=== PATIENT | female | born 1940 | race Caucasian/White ===

== ENCOUNTER 2017-02-17 16:24 | Inpatient (IN) | payer OTHER, MEDICARE ==
[~2017-02-17] VITALS: Ht 162.6 cm; Wt 52.2 kg
[~2017-02-17 16:24] MED LIST: BENTYL20 M1 PO; Dulcolax PO; FOLIC ACID 1 MG PO; METHOTREXATE 22.5 MG PO; MULTI-DAY VITA1 EACH PO; SYNTHROID0.075 MG PO; Senokot S PO; TUMS EX750 MG PO; VITAMIN D1000 IU PO
--- NOTE | 2017-02-17 16:33 | NUR ---
PT TO ED FOR C/C OF DIFFUSE ABD PAIN AND VOMITING WITHOUT BLOOD. UNABLE TO KEEP FOOD AND WATER DOWN. HX OF COLITIS REPORTS PAIN IS SIMILAR IN NATURE TO PREVIOUS ATTACKS. REPORTS CHILLS, NO FEVERS. +BURNING WITH URINATION. DENIES DIARRHEA.
--- NOTE | 2017-02-17 17:07 | ED GI/GU/ABDOMINAL COMPLAINT ---
History of Present Illness General Chief Complaint: Nausea, Vomiting, Diarrhea Stated Complaint: VOMITING H/O COLITIS,BURNING W URINATION Source: patient, old records Exam Limitations: no limitations Vital Signs & Intake/Output Vital Signs & Intake/Output Vital Signs Date Time Temp Pulse Resp B/P B/P Pulse O2 O2 Flow FiO2 Mean Ox Delivery Rate 02/19 1446 98.2 67 18 100/70 97 Room Air 02/19 0851 98.2 80 16 112/48 98 Room Air ED Intake and Output 02/19 0000 02/18 1200 Intake Total 2480 840 Output Total 200 Balance 2480 640 Intake, IV 1200 600 Intake, Oral 1280 240 Number 0 1 Bowel Movements Output, Urine 200 Patient 115 lb Weight Allergies Coded Allergies: NSAIDS (Non-Steroidal Anti-Inflamma (Severe, ANAPHYLAXIS 02/17/17) Sulfa (Sulfonamide Antibiotics) (Severe, ANAPHYLAXIS 02/17/17) naproxen (From ALEVE) (Severe, ANAPHYLAXIS 02/17/17) Penicillins (Intermediate, HIVES, COLITIS ATTACK 02/17/17) Reconcile Medications Calcium Carbonate (Tums Ex) 750 MG CTB 2 TAB PO 3XW SUPPLEMENT (Reported) Cholecalciferol (Vitamin D3) (Vitamin D) 2,000 UNIT TABLET 1 TAB PO DAILY Supplement (Reported) Dicyclomine HCl (Bentyl) 20 MG TABLET 1 TAB PO TID PRN CRAMPS Folic Acid 1 MG TABLET 1 MG PO DAILY FOLIC ACID SUPPLEMENT (Reported) Levothyroxine Sodium (Synthroid) 0.075 MG TAB 0.075 MG PO DAILY AC THYROID ( Reported) Methotrexate 2.5 MG TABLET 4 TAB PO QW Rheumatoid arthritis (Reported) Take every monday Multivitamin (Multi-Day Vitamins) 1 EACH TABLET 1 TAB PO DAILY SUPPLEMENT ( Reported) Triage Note: PT TO ED FOR C/C OF DIFFUSE ABD PAIN AND VOMITING WITHOUT BLOOD. UNABLE TO KEEP FOOD AND WATER DOWN. HX OF COLITIS REPORTS PAIN IS SIMILAR IN NATURE TO PREVIOUS ATTACKS. REPORTS CHILLS, NO FEVERS. +BURNING WITH URINATION. DENIES DIARRHEA. Triage Nurses Notes Reviewed? yes ? N Is pt currently ? No Onset: Gradual Duration: day(s): Timing: recent history Quality/Severity: aching, dullness, stabbing Severity Numbers: 9 Location: left lower quadrant, right lower quadrant, BACK HPI: 76-year-old female presents emergency department complaining of lower abdominal and back pain since yesterday. She states that she has a history of colitis, OLD records show she was seen for colitis on 05/05/16. The patient states that her pain currently feels similar to previous episodes of colitis. She is also complaining of nausea with nonbloody, nonbilious vomiting beginning around 1 PM today. Abdominal pain is described as dull aching with occasional sharp stabs. Her back pain is described as more severe,9/10, worse on the left side. Is also complaining of dysuria since this morning. She says she gets frequent UTIs, last occurring in November of this year. She was recently treated with a course of oral steroids X 2.5 weeks and believes that this may have affected her intestines. She denies fevers, chills, hematuria, frequency, diarrhea, constipation, chest pain, difficulty breathing. (SHEFALI SAWYER PA-C) Past History Travel History Traveled to [place] past 21 day No Medical History Any Pertinent Medical History? see below for history Neurological: NONE EENT: NONE Cardiovascular: NONE Respiratory: NONE Gastrointestinal: hiatal hernia, infectious colitis Hepatic: NONE Renal: nephrolithiasis, RECURRENT UTIs Musculoskeletal: osteoarthritis, rheumatoid arthritis Psychiatric: NONE Endocrine: hypothyroidism Blood Disorders: NONE Cancer(s): NONE NETWORK ENGINEER/Reproductive: NONE Surgical History Surgical History: appendectomy, cholecystectomy, hysterectomy, tonsillectomy Psychosocial History Who do you live with Spouse Services at Home NONE What is your primary language Lithuanian Tobacco Use: Never used ETOH Use: denies use Illicit Drug Use: denies illicit drug use Family History Family History, If Any: BROTHER (SD at age of 50). SISTER (nephrolithiasis). Hx Contributory? No (SHEFALI SAWYER PA-C) Review of Systems Review of Systems Constitutional: Reports: no symptoms. EENTM: Reports: no symptoms. Respiratory: Reports: no symptoms. Cardiovascular: Reports: no symptoms. GI: Reports: see HPI. Genitourinary: Reports: see HPI. Musculoskeletal: Reports: see HPI. Skin: Reports: no symptoms. Neurological/Psychological: Reports: no symptoms. Hematologic/Endocrine: Reports: no symptoms. Immunologic/Allergic: Reports: no symptoms. All Other Systems: Reviewed and Negative (SHEFALI SAWYER PA-C) Physical Exam Physical Exam General Appearance: well developed/nourished, no apparent distress, alert, awake Head: atraumatic, normal appearance Eyes: Bilateral: normal appearance, EOMI. Ears, Nose, Throat, Mouth: hearing grossly normal Neck: normal inspection, supple, full range of motion Respiratory: normal breath sounds, no respiratory distress, lungs clear Cardiovascular: regular rate/rhythm Gastrointestinal: normal bowel sounds, soft, no organomegaly, TENDERNESS THROUGHOUT EXAM, NO REBOUND, NO GAURDING Back: normal inspection, CVA tenderness (L) Extremities: normal range of motion Neurologic/Psych: awake, alert, oriented x 3 Skin: intact, normal color Core Measures ACS in differential dx? No Severe Sepsis Present: No Septic Shock Present: No (DIGNA GARCIA,SHEFALI) Progress Differential Diagnosis: appendicitis, bowel obstruction, cholecystitis, diverticulitis, gastritis, ischemic bowel, kidney stone, ovarian cyst, pancreatitis, peptic ulcer, SBO, UTI/pyelo Plan of Care: Orders Procedure Date/time Status Regular Diet 02/19 L Active Current Medications Sig/Ofelia Start time Last Medication Dose Stop Time Status Admin Enoxaparin Sodium 40 MG DAILY@2200 02/18 2200 AC 02/18 (Lovenox) 2114 Estradiol 1 GM Q48 02/18 1400 AC 02/18 (Estrace Vaginal Cm 1647 0.01%) Calcium Carbonate 750 MG TUES THURS SAT 02/18 1000 AC 02/18 (TUMS) 0938 Ceftriaxone Sodium 1,000 MG DAILY 02/18 1000 AC 02/19 (Rocephin) 0959 Cholecalciferol 2,000 IU DAILY 02/18 1000 AC 02/19 (Vitamin D) 0959 Folic Acid 1 MG DAILY 02/18 1000 AC 02/19 (Folic Acid) 0959 Methotrexate 10 MG Q168 02/18 1000 AC 02/18 (Methotrexate 2.5MG 0939 Tab) Multivitamins 1 TAB DAILY 02/18 1000 AC 02/19 Therapeutic 0959 (Theragran-M Vitamins Tabs) Levothyroxine Sodium 0.075 MG DAILY AC 02/18 0700 AC 02/19 (Synthroid) 0548 Dicyclomine HCl 20 MG 4 TIMES/DAY PRN 02/18 0130 AC (Bentyl) Ondansetron HCl 4 MG Q6P PRN 02/17 2345 AC 02/17 (Zofran) 2356 Acetaminophen 650 MG Q6P PRN 02/17 2130 AC 02/18 (Tylenol) 0018 Laboratory Tests 02/19/17 0600: CBC w Diff NO MAN DIFF REQ, RBC 4.48, MCV 87.2, MCH 28.8, RDW 15.2 H, MPV 8.3, Gran % 56.1, Lymphocytes % 33.9, Monocytes % 6.6, Eosinophils % 3.0, Basophils % 0.4, Absolute Granulocytes 3.4, Absolute Lymphocytes 2.1, Absolute Monocytes 0.4 , Absolute Eosinophils 0.2, Absolute Basophils 0, PUBS MCHC 33.0 Patient states that she feels improved and nausea since IV Zofran. She is very thirsty requesting by mouth water/em balbir. The patient was discussed with Dr. Ospina. Her CT scan shows resolved colitis from prior scan, renal calculi present in left kidney however no pyelonephritis no hydronephrosis no stone in ureter. UA reveals UTI. 20:45 - spoke with Dr. Mckinnon, patient will be admitted to general medicine given UTI with significant leukocytosis. Patient may require IV antibiotics, she will need repeat labs and blood work, continued monitoring given her age and leukocytosis. Premature discharge would be medically unsafe. Patient is in agreement with the plan of care. (DIGNA GARCIA,SHEFALI) Diagnostic Imaging: Viewed by Me: CT Scan. Discussed w/RAD: CT Scan. Radiology Impression: PATIENT: NITIN HAMPTON PRESENT AGE: 76 PATIENT ACCOUNT NO: [id number] : 41 LOCATION: [facility] ORDERING PHYSICIAN: SHEFALI SAWYER PA-C SERVICE DATE: 02/17/17 EXAM TYPE: CAT - CT ABD & PELVIS W IV CONTRAST EXAMINATION: CT ABDOMEN AND PELVIS WITH CONTRAST CLINICAL INFORMATION: Abdomen pain. Back pain. Nausea. Vomiting COMPARISON: Portions of a previous study 05/05/16 TECHNIQUE: Multidetector volumetric imaging was performed of the abdomen and pelvis before and after the IV administration of 93 mL of Optiray 320 intravenous contrast. Sagittal and coronal reformatted images were obtained on the technologist's workstation. DLP: 269 mGy-cm FINDINGS: LUNG BASES: There is a small to moderate sliding-type hiatal hernia. No suspicious abnormality the visualized lung bases. LIVER, GALLBLADDER, AND BILIARY TREE: No suspicious abnormality in the liver. I suspect some fatty change. The liver contour is smooth. There are surgical clips in the expected region of the gallbladder. The common duct measures approximately 0.7 cm which is within normal limits after cholecystectomy and appears unchanged. PANCREAS: No suspicious abnormality. SPLEEN: There is an unchanged round low attenuating lesion at the posterior margin of the spleen likely a cyst. ADRENAL GLANDS: Within normal limits KIDNEYS AND URETERS: There are multiple fluid attenuating spaces in the central sinus of both kidneys again demonstrated. The pattern is felt most consistent with parapelvic cysts. There is mild fullness of the renal pelvis on each side and there is visualization of urine within a minimally prominent left ureter. There are multiple punctate left renal calculi. These all measure less than 0.4 cm. There is no opaque ureteral calculus. BLADDER: No suspicious abnormality. GASTROINTESTINAL TRACT: There is some fluid and a large amount of fecal residue. The fecal residue is in the distal colon. The fluid is in the proximal colon. There is no definite wall thickening. No localized pericolonic fat stranding. No abnormal appendix demonstrated. No definite abnormality the stomach. No convincing small bowel dilation. ABDOMINAL WALL: No significant hernia is appreciated. LYMPH NODES: There are no enlarged abdominal or pelvic lymph nodes. No free intraperitoneal fluid. VASCULAR: There is atherosclerotic calcification. There is no abdominal aortic aneurysm. The portal vein enhances. PELVIC VISCERA: The uterus is surgically absent. No suspicious adnexal mass or collection. OSSEOUS STRUCTURES: No suspicious focal lesion IMPRESSION: There is resolution of the previously demonstrated thickening of the distal colon. Large amount of fecal residue in the distal colon. No evidence of a high-grade small bowel obstruction. Numerous renal parapelvic cysts and some punctate nonobstructing small left renal calculi. DICTATED BY: JOSEPH GAN MD DATE/TIME DICTATED:02/17/171826 CAREER REPRESENTATIVE:TAYE DATE/TIME TRANSCRIBED:02/17/171826 CONFIDENTIAL, DO NOT COPY WITHOUT APPROPRIATE AUTHORIZATION. <Electronically signed in Other Vendor System> SIGNED BY: JOSEPH GAN MD 02/17/17 1841 Initial ED EKG: none (SHEFALI SAWYER PA-C) Departure Departure Disposition: STILL A PATIENT Condition: Stable Clinical Impression Primary Impression: Cystitis Secondary Impressions: Leukocytosis Referrals: RHETT EATON,ROBERT Michele (PCP/Family) Departure Forms: Customer Survey General Discharge Information Admission Note Spoke With: ASTER MCKINNON MD Documentation of Exam: Documentation of any treatments & extenuating circumstances including Concerns Regarding Discharge (functional status, medication knowledge or non-compliance, living conditions, etc.) that warrant an admission rather than observation: [ leukocytosis with cystitis, requiring possible IV antibiotics, further IV fluids , repeat labs to monitor WBCs, monitoring of vital signs, premature discharge would be medically unsafe] (SHEFALI SAWYER PA-C) PA/PRODUCT DELIVERY SPECIALIST Co-Sign Statement Statement: ED Attending supervision documentation- [X] I saw and evaluated the patient. I have also reviewed all the pertinent lab results and diagnostic results. I agree with the findings and the plan of care as documented in the PA's/PRODUCT DELIVERY SPECIALIST's documentation. [X] I have reviewed the ED Record and agree with the PA's/PRODUCT DELIVERY SPECIALIST's documentation. [] Additions or exceptions (if any) to the PAs/PRODUCT DELIVERY SPECIALIST's note and plan are summarized below: [] (SETH EATON,COREY)
--- NOTE | 2017-02-17 17:21 | NUR ---
PT REPORTS THIS ALL STARTED WITH A FALL WEEKS AGO. PT STARTED ON MEDS THIS AM FOR HER URINE AND THEN BEGAN VOMITING AT 2 PM, HAS HAD THIS MED BEFORE BUT THINKS IT IS A CUMULATION OF EVERYTHING SINCE THE FALL. IVF ESTABLISHED PT CHANGED INTO GOWN. MED WITH ZOFRAN 4 MG IV
[2017-02-17 17:35] LABS: ABSOLUTE BASOPHIL COUNT 0.1 /CUMM (0.0-0.2); ABSOLUTE EOSINOPHIL COUNT 0 /CUMM (0.0-0.7); ABSOLUTE GRANULOCYTE CT 17.8 /CUMM (1.4-6.5); ABSOLUTE LYMPH COUNT 1.2 /CUMM (1.2-3.4); ABSOLUTE MONOCYTE COUNT 0.7 /CUMM (0.10-0.60); BASOPHIL % 0.3 % (0.0-2.0); EOSINOPHIL % 0.2 % (0-5); GRANULOCYTE % 90.1 % (42.2-75.2); HEMATOCRIT 47.7 % (37-47); MEAN CORPUSCULAR HGB 28.5 PG (27.0-31.0); MEAN CORPUSCULAR VOLUME 86.2 FL (81.0-99.0); PLATELET COUNT 278 /CUMM (130-400); RBC DISTRIBUTION WIDTH 15.4 % (11.5-14.5); RED BLOOD CELL CT 5.53 /CUMM (4.20-5.40); WHITE BLOOD CELL COUNT 19.8 /CUMM (4.8-10.8)
--- NOTE | 2017-02-17 18:41 | CT SCAN REPORT ---
EXAMINATION: CT ABDOMEN AND PELVIS WITH CONTRAST CLINICAL INFORMATION: Abdomen pain. Back pain. Nausea. Vomiting COMPARISON: Portions of a previous study 05/05/16 TECHNIQUE: Multidetector volumetric imaging was performed of the abdomen and pelvis before and after the IV administration of 93 mL of Optiray 320 intravenous contrast. Sagittal and coronal reformatted images were obtained on the technologist's workstation. DLP: 269 mGy-cm FINDINGS: LUNG BASES: There is a small to moderate sliding-type hiatal hernia. No suspicious abnormality the visualized lung bases. LIVER, GALLBLADDER, AND BILIARY TREE: No suspicious abnormality in the liver. I suspect some fatty change. The liver contour is smooth. There are surgical clips in the expected region of the gallbladder. The common duct measures approximately 0.7 cm which is within normal limits after cholecystectomy and appears unchanged. PANCREAS: No suspicious abnormality. SPLEEN: There is an unchanged round low attenuating lesion at the posterior margin of the spleen likely a cyst. ADRENAL GLANDS: Within normal limits KIDNEYS AND URETERS: There are multiple fluid attenuating spaces in the central sinus of both kidneys again demonstrated. The pattern is felt most consistent with parapelvic cysts. There is mild fullness of the renal pelvis on each side and there is visualization of urine within a minimally prominent left ureter. There are multiple punctate left renal calculi. These all measure less than 0.4 cm. There is no opaque ureteral calculus. BLADDER: No suspicious abnormality. GASTROINTESTINAL TRACT: There is some fluid and a large amount of fecal residue. The fecal residue is in the distal colon. The fluid is in the proximal colon. There is no definite wall thickening. No localized pericolonic fat stranding. No abnormal appendix demonstrated. No definite abnormality the stomach. No convincing small bowel dilation. ABDOMINAL WALL: No significant hernia is appreciated. LYMPH NODES: There are no enlarged abdominal or pelvic lymph nodes. No free intraperitoneal fluid. VASCULAR: There is atherosclerotic calcification. There is no abdominal aortic aneurysm. The portal vein enhances. PELVIC VISCERA: The uterus is surgically absent. No suspicious adnexal mass or collection. OSSEOUS STRUCTURES: No suspicious focal lesion IMPRESSION: There is resolution of the previously demonstrated thickening of the distal colon. Large amount of fecal residue in the distal colon. No evidence of a high-grade small bowel obstruction. Numerous renal parapelvic cysts and some punctate nonobstructing small left renal calculi.
--- NOTE | 2017-02-17 18:52 | NUR ---
URINE TRIO SENT TO LAB.
--- NOTE | 2017-02-17 19:30 | NUR ---
ASSUMED CARE OF PT PER RN YUDY H. PT RESTING IN RM ON STRETCHER WITH RR, FAMILY AT BEDSIDE. ESCOBAR GARCIA IN RM FOR POC AND TP DISCUSS CT RESULTS
--- NOTE | 2017-02-17 20:13 | NUR ---
ESCOBAR GARCIA IN RM FOR POC
--- NOTE | 2017-02-17 20:46 | History & Physical ---
PEGGY EATON,[facility] 02/17/172044: General Information and HPI History of Present Illness: Mr. Jenkins is a 76-year-old female with past medical history of rheumatoid arthritis, hypothyroidism, recurrent colitis, recurrent UTIs, nephrolithiasis, status post cholecystectomy appendectomy and hysterectomy who presents with history of vomiting and abdominal pain. Yesterday she noticed that she had increased frequency of urination and some burning while peeing. She has a prescription for nitrofurantoin that she takes for her recurrent UTIs. She start taking this with no relief. Usually the nitrofurantoin provides relief. This morning when she woke up she was feeling okay. However this afternoon she began vomiting after feeling nauseous. She had copious emesis but no blood. Her pain is located predominantly in the lower half of her abdomen worse on the right lower quadrant. The pain does not radiate. She thinks that this pain is similar to when she has had colitis in the past. She also complaining of some lower back pain. This started after she started vomiting. Of note, 5 weeks ago she mentions that she fell after tripping on the sidewalk. She injured her hands. Ap Batres MD, her small arms repairer, prescribed a prednisone taper. She was supposed to see him in a couple weeks at the end of this taper. She denies chest pain, shortness of breath, fever, diarrhea, constipation. She does have chills occasionally. When she came into the emergency department, her vitals were within normal limits and her pain was 8-9/10. She received ondansetron and 1 L of normal saline and her pain has since subsided to 4/10. She has no diarrhea or constipation. She has remained afebrile, no tachycardia, no hypotension, no hypoxia. Labs are significant for a white blood cell count of 19.8, normal LFTs. UA reveals small leukocyte esterase and 15-[address] of the abdomen/ pelvis shows no evidence of a high-grade small bowel obstruction. It also shows some nonobstructing kidney stones. Allergies/Medications Allergies: Coded Allergies: NSAIDS (Non-Steroidal Anti-Inflamma (Severe, ANAPHYLAXIS 02/17/17) Sulfa (Sulfonamide Antibiotics) (Severe, ANAPHYLAXIS 02/17/17) naproxen (From ALEVE) (Severe, ANAPHYLAXIS 02/17/17) Penicillins (Intermediate, HIVES, COLITIS ATTACK 02/17/17) Past History Travel History Traveled to [place] past 21 day No Medical History Neurological: NONE EENT: NONE Cardiovascular: NONE Respiratory: NONE Gastrointestinal: hiatal hernia, infectious colitis, s/p cholecystectomy Hepatic: NONE Renal: nephrolithiasis, RECURRENT UTIs Musculoskeletal: osteoarthritis, rheumatoid arthritis Psychiatric: NONE Endocrine: hypothyroidism Blood Disorders: NONE Cancer(s): NONE 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 SISTER (nephrolithiasis). Psychosocial History Who Do You Live With? self Services at Home: NONE Primary Language: [place] ETOH Use: denies use Illicit Drug Use: denies illicit drug use Functional Ability ADLs Independent: dressing, eating, toileting, bathing. Ambulation: independent IADLs Independent: shopping, housework, finances, food prep, telephone, transportation , medication admin. Review of Systems Review of Systems Constitutional: Reports: no symptoms. Cardiovascular: Denies: no symptoms. Respiratory: Denies: no symptoms. GI: Reports: see HPI. Genitourinary: Reports: see HPI. Musculoskeletal: Reports: see HPI. Skin: Denies: no symptoms. Exam & Diagnostic Data Last 24 Hrs of Vital Signs/I&O Vital Signs Date Time Temp Pulse Resp B/P B/P Pulse O2 O2 Flow FiO2 Mean Ox Delivery Rate 02/179 99.9 86 18 116/53 96 Room Air 02/17 1850 93 18 142/64 97 Room Air 02/17 1633 96.0 91 15 121/79 94 Room Air Room Air Physical Exam General Appearance Alert, Oriented X3, Cooperative, No Acute Distress Skin No Rashes, No Breakdown, No Significant Lesion Sepsis Skin Exam (color): Normal for Ethnicity HEENT Atraumatic, Mucous Membr. moist/pink, no pallor. Neck Supple, No thryomegaly Lymphatic Cervical nl Cardiovascular Regular Rate, Normal S1, Normal S2, No Murmurs Lungs Clear to Auscultation, Normal Air Movement Abdomen Normal Bowel Sounds, Soft, diffusely tender to palpation. No rebound tenderness no guarding. Tenderness is worse in lower abdomen Neurological Normal Speech, Normal Tone, Cranial Nerves 3-12 NL Extremities No Edema, Normal Pulses Vascular Normal Pulses, Pulses Symmetrical Last 24 Hrs of Labs/Ariel: Laboratory Tests 02/17/17 1845: Urine Color YEL, Urine Clarity CLEAR, Urine pH 6.0, Ur Specific [place] <= 1.005 , Urine Protein NEG, Urine Ketones TRACE H, Urine Nitrite NEG, Urine Bilirubin NEG, Urine Urobilinogen 0.2, Ur Leukocyte Esterase SMALL H, Ur Microscopic SEDIMENT EXAMINED, Urine RBC RARE, Urine WBC 15-25 H, Ur Epithelial Cells FEW, Urine Bacteria FEW H, Urine Hemoglobin TRACE-INTACT, Urine Glucose NEG 02/17/17 1700: Anion Gap 13, Estimated GFR > 60, BUN/Creatinine Ratio 23.8, Glucose 108 H, Calcium 9.8, Total Bilirubin 0.5, AST 25, ALT 38, Alkaline Phosphatase 86, Total Protein 7.4, Albumin 4.5, Globulin 2.9, Albumin/Globulin Ratio 1.6, Amylase 90, Lipase 245, CBC w Diff MAN DIFF ORDERED, RBC 5.53 H, MCV 86.2, MCH 28.5, RDW 15.4 H, MPV 8.0, Gran % 90.1 H, Lymphocytes % 5.9 L, Monocytes % 3.5, Eosinophils % 0.2, Basophils % 0.3, Absolute Granulocytes 17.8 H, Segmented Neutrophils 81 H, Band Neutrophils 7 H, Absolute Lymphocytes 1.2, Lymphocytes 6 L, Monocytes 3, Absolute Monocytes 0.7 H, Eosinophils 1, Absolute Eosinophils 0, Basophils 1, Absolute Basophils 0.1, Metamyelocytes 1, Platelet Estimate ADEQUATE, Anisocytosis 1+, PUBS MCHC 33.0 Microbiology 02/18 2136 URINE ROUT: Urine Culture - ORD 02/18 2136 BLOOD: Blood Culture - ORD 02/18 2136 BLOOD: Blood Culture - ORD Assessment/Plan Assessment: Mr. Jenkins is a 76-year-old female with past medical history of rheumatoid arthritis, hypothyroidism, recurrent colitis, recurrent UTIs, nephrolithiasis, status post cholecystectomy appendectomy and hysterectomy who presents with history of vomiting and abdominal pain. #Positive UA, nausea, vomiting in an immunocompromised host: She is afebrile with a leukocytosis and a UA that is positive. Given her history of UTIs and symptoms, this is likely a UTI. However she also has history of copious vomiting today associated with some lower back pain. While the CT scan did not show any obstructing stones or colitis, these symptoms are not completely consistent with a UTI. Other items on the differential include ischemic colitis , pyelonephritis, cholangitis. Much less likely but critical not to miss includes aortic dissection. She has been and remains hemodynamically stable, but does meet 2 out of 4 SIRS criteria, for leukocytosis (on prednisone) and tachycardia. -Blood culture and urine culture -Stool guaiac -Lactic acid -TSH, free T4, T3 -Percocet for pain -Ondansetron for nausea -Clear liquid diet, advance as tolerated -Maintenance fluids -Ceftriaxone #Chronic medical problems: Hypothyroidism, rheumatoid arthritis, vitamin supplementation -Continue home folic acid, vitamin D, calcium carbonate, Lecothyroxine, methotrexate -Dicyclomine when necessary spasms #DVT prophylaxis with Lovenox full code As Ranked By This Provider Problem List: 1. Leukocytosis Core Measures/Miscellaneous Acute Coronary Syndrome ACS Diagnosis: No Cerebrovascular Accident CVA/TIA Diagnosis: No Congestive Heart Failure CHF Diagnosis: No VTE (View Protocol) VTE Risk Factors: Age > 40 No [facility] VTE prophylaxis d/t: No contraindications No VTE Pharm Prophylaxis d/t: No contraindications VTE Diagnosis: No VTE Type: NONE VTE Confirmed by (Test): NONE Sepsis (View Protocol) Severe Sepsis Present: No Septic Shock Septic Shock Present: No Miscellaneous Documentation Attending Case Discussed With: ASTER GANN MD Primary Care Physician: ROBERT DELANEY MD Patient sees these Specialists Ap Batres MD, small arms repairer. Dr. Parra, GI doctor. Level of Patient Care: General Medicine RUDY DIAZ 02/17/17 1885: General Information and HPI Allergies/Medications Home Med list Calcium Carbonate (Tums Ex) 750 MG CTB 2 TAB PO 3XW SUPPLEMENT (Reported) Cholecalciferol (Vitamin D3) (Vitamin D) 2,000 UNIT TABLET 1 TAB PO DAILY Supplement (Reported) Dicyclomine HCl (Bentyl) 20 MG TABLET 1 TAB PO TID PRN CRAMPS Folic Acid 1 MG TABLET 1 MG PO DAILY FOLIC ACID SUPPLEMENT (Reported) Levothyroxine Sodium (Synthroid) 0.075 MG TAB 0.075 MG PO DAILY AC THYROID ( Reported) Methotrexate 2.5 MG TABLET 4 TAB PO QW Rheumatoid arthritis (Reported) Take every monday Multivitamin (Multi-Day Vitamins) 1 EACH TABLET 1 TAB PO DAILY SUPPLEMENT ( Reported) Resident Review Statement Resident Statement: examined this patient, discussed with fall internship, agreed with fall internship, discussed with family, reviewed EMR data (avail), discussed with nursing , reviewed images Other Findings: Mrs Jenkins is a very pleasant 76-year-old lady with a PMH of RA on methotrexate 10 mg once a week, hypothyroidism, history of colitis last episode in 2016, recurrent UTIs (3 over the past 8 months), who presents with complaints of one- day duration abdominal pain and urinary symptoms. She suffered a fall 5 weeks ago for which she followed up with her small arms repairer Dr. Batres and was started on a prednisone taper at 5 mg BID for 10 days and 5 mg daily (completed 4 days) yesterday morning she experienced new onset stomach pain that she describes as a burning sensation localized around the lower abdomen R>L. This was also accompanied by urinary symptoms that she describes as frequency and burning. She stopped taking the prednisone per recommendations from Dr. Batres and started on standing order of nitrofurantoin for her history of UTIs. This morning she woke up with nausea and had multiple episodes of nonbloody vomitus she denies any sore throat, chest pain, palpitations, shortness of breath, fevers, chills, changes in diet or recent travel. VS admission: BP 121/79, HR 91, RR 15, SPO2 94% on RA, T 96.0 Pertinent labs: WBC 19.8, H&H 15.7/47.7, sodium 141, potassium 3.8, chloride 103 , bicarbonate 25, BUN/CR 19/0.8, glucose 108 UA: Leukocyte esterase positive, 15-[address] abdomen and pelvis: Resolution of previously thickening of distal colon. Large amount of fecal residue in distal colon. Numerous renal parapelvic cysts and some punctate nonobstructing small left renal calculi Physical exam: Alert and in no acute distress, moist mucous membranes, RRR, normal S1/S2. Lungs CTA BL. Normal bowel sounds with tenderness to palpation over the epigastric, suprapubic, right and left lower quadrants. Problem list: 1. UTI 2. SIRS criteria: Leukocytosis 19.8, HR 91 3. Gastritis 4. Renal calculi 5. Probable constipation 6. Hypothyroidism Plan: * Admit to general medicine for management of UTI with SIRS criteria * Patient has an allergy to penicillins with hives. Pt has received cefazolin in the past. Would be inclined to start her on ceftriaxone based on 5% cross reaction between PCN and cephalosprins, standing order of Benadryl in case of hives. Follow-up urine cultures and adjust for sensitivities accordingly * Follow up blood culture for possibility of bacteremia. Of note, patient reports normally not running fevers when sick * DDX gastritis: We'll start the patient on clear liquids and advance as tolerated, antiemetics with Zofran PRN, PPI * DDX of renal calculi irritation: Less likely at this time. No evidence of hematuria but is not always necessary. We'll continue to manage and if persistent symptoms consider starting on Flomax * Bowel regimen with senna and Colace * Continue with levothyroxine. Follow TFTs * DVT prophylaxis: Lovenox * Full code
--- NOTE | 2017-02-17 21:21 | NUR ---
HOUSE STAFF IN FOR EVAL
--- NOTE | 2017-02-17 21:38 | NUR ---
PT IS GOING TO 229-2
--- NOTE | 2017-02-17 22:16 | NUR ---
THIS RN MADE MULTIPLE ATTEMPTS TO CALL REPORT, NO ANSWER ON [facility].
--- NOTE | 2017-02-17 22:22 | NUR ---
REPORT GIVEN TO JARED WAGNER ON [facility].
--- NOTE | 2017-02-17 22:26 | NUR ---
TRANSPORT REQUEST SENT
--- NOTE | 2017-02-17 22:36 | NUR ---
THIS RN CALLED [facility] ON THE PHONE FOR TRANPORT AND [facility] STATES THAT THIS RN PLACED THE CORRECT TRANSPORT ORDER. [facility] STATED "IM WAITING FOR THE BOYS TO GET BACK FROM A TRANSPORT"
[2017-02-17 23:50] VITALS: BP 104/50
--- NOTE | 2017-02-18 01:05 | PN- Att Addend ---
Attending Addendum Attending Brief Note CC: Abdominal pain, vomiting PMH: Rheumatoid arthritis, hypothyroidism, recurrent UTI, nephrolithiasis ( history of cholecystectomy, hysterectomy, appendicectomy) Patient came to ER complaining of lower abdominal pain more so in the right lower quadrant, nonradiating, non-shifting, associated with multiple vomitings clear and bilious, no blood, no fever endorses some chills. Patient had been getting urinary burning since yesterday, started on nitrofurantoin on her own. Denies diarrhea, blood in stool. Patient compares his pain to similar episode in the past for colitis. Vitals: Tmax 99.9, HR 90, RR 15, blood pressure 121/79, saturating well on room air. On exam: A O 3, cooperative, no acute distress, neck supple, JVD normal, no lymphadenopathy, mucosa moist, no focal neurological deficit, no dependent edema , no obvious skin rashes or inflammation CVS: S1-S2, RRR. RS: Clear to auscultate bilaterally. Abdomen: Soft, mild tender, more so in the right lower quadrant ? Rebound bowel sounds present, left CVA tenderness present. Peripheral pulses perfusion normal Labs: WBC 19.8 neutrophils 90%, bands 7, hemoglobin 15.7, BMP, LFT unremarkable, , lipase 245 UA positive for trace ketone, small leukocyte esterase CT abdomen and pelvis: 1. There is resolution of the previously demonstrated thickening of the distal colon. Large amount of fecal residue in the distal colon. 2. No evidence of a high-grade small bowel obstruction. 3. Numerous renal parapelvic cysts and some punctate nonobstructing small left renal calculi. A and P 76-year-old female with past medical history significant for rheumatoid arthritis, hypothyroidism currently on Synthroid and methotrexate and tapering dose of prednisone for recent suspected flare of rheumatoid arthritis and recurrent urinary tract infection presents ER for right lower quadrant abdominal pain and recurrent vomitings. She also has urinary burning, left CVA tenderness. Patient states that she gets it recurrent UTI approximately 3-4 times in ER, takes nitrofurantoin time when she starts symptoms. This time even though she started nitrofurantoin time the nausea and abdominal pain was persistent which was compatible to a previous episode of colitis so she came to ER. Patient has leukocytosis with 7 bands, UA positive for leukocyte esterase only no nitrites. CVA tenderness present as mentioned above, CT does not mention any evidence of pyelonephritis but clinically appears so. Also mild tenderness right lower quadrant which will need serial examinations, she has history of appendectomy, cholecystectomy which will rule out other pathologies, CT abdomen is unremarkable. She will benefit from IV antibiotics given her immunocompromised status + Suspected left-sided pyelonephritis + Right lower quadrant abdominal pain + Nausea vomiting + History of rheumatoid arthritis, hypothyroidism - Admit to general medicine - Continue gentle hydration - Advance diet as tolerated - When necessary Zofran for nausea - Urine culture, blood culture - Trend lactate - Continue IV ceftriaxone - Continue all her home medications - Bowel regimen - Check troponin and EKG - Serial abdominal examination for tenderness - Adequate pain control - DVT prophylaxis with Lovenox
--- NOTE | 2017-02-18 01:06 | Admission Certification ---
Admission Certification Certification Statement - As attending physician, I certify that at the time of - admission, based on clinical presentation, severity of - symptoms, need for further diagnostic testing and - therapeutic interventions, and risk of adverse outcomes - without in-hospital treatment, in my clinical assessment, - this patient requires an acute hospital stay for a minimum - of two nights or longer. I have also considered psychsocial - factors such as support system, advanced age, financial - issues, cognitive issues, and failed out-patient treatments, - past re-admission history, safety of patient, and lack of - compliance as applicable. Specific rationale supporting this admission is: UTI and suspected left-sided pyelonephritis
[2017-02-18] MEDS ORDERED: VITAMIN D2000 UNI1 PO (01:30)
[2017-02-18] MEDS ORDERED: METHOTREXATE2.5 M2 PO (01:32)
--- NOTE | 2017-02-18 04:29 | PN- Housestaff ---
See Addendum Subjective Follow-up For: UTI Subjective: Her pain is improved from last night though she still feels pressure and some nausea. Her back pain is not bothering her right now. No vomitting last night. She still has dysuria Review of Systems Constitutional: Denies: no symptoms. Cardiovascular: Denies: no symptoms. Respiratory: Denies: no symptoms. Gastrointestinal: Reports: see HPI. Genitourinary: Reports: see HPI. Objective Last 24 Hrs of Vital Signs/I&O Vital Signs Date Time Temp Pulse Resp B/P B/P Pulse O2 O2 Flow FiO2 Mean Ox Delivery Rate 02/17 2350 98.6 73 20 104/50 96 Room Air 02/17 2059 99.9 86 18 116/53 96 Room Air 02/17 1850 93 18 142/64 97 Room Air 02/17 1633 96.0 91 15 121/79 94 Room Air Room Air Intake & Output 02/18 0800 02/18 0000 02/17 1600 Intake Total Output Total Balance Patient 115 lb Weight Weight Reported by Patient Measurement Method Physical Exam General Appearance: Alert, Oriented X3, Cooperative, No Acute Distress Skin: No Rashes Cardiovascular: Regular Rate, Normal S1, Normal S2, No Murmurs Lungs: Clear to Auscultation Abdomen: Diffusely tender to palpation with rebound tenderness. No guarding. Neurological: Normal Speech, Strength at 5/5 X4 Ext, Cranial Nerves 3-12 NL Extremities: No Edema Vascular: Normal Pulses Current Medications: Current Medications Sig/Ofelia Start time Last Medication Dose Route Stop Time Status Admin Acetaminophen 650 MG Q6P PRN 02/17 2130 AC 02/18 PO 0018 Calcium Carbonate 750 MG TU SAT 02/18 1000 AC PO Ceftriaxone Sodium 1,000 MG DAILY 02/18 1000 AC IV Cholecalciferol 2,000 IU DAILY 02/18 1000 AC PO Dicyclomine HCl 20 MG 4 TIMES/DAY PRN 02/18 0130 AC PO Enoxaparin Sodium 40 MG DAILY 02/17 2230 AC 02/18 SC 0112 Folic Acid 1 MG DAILY 02/18 1000 AC PO Levothyroxine Sodium 0.075 MG DAILY AC 02/18 0700 AC PO Methotrexate 10 MG Q168 02/18 1000 AC PO Multivitamins 1 TAB DAILY 02/18 1000 AC Therapeutic PO Ondansetron HCl 4 MG Q6P PRN 02/17 2345 AC 02/17 IV 2356 Ondansetron HCl 0 .STK-MED ONE 02/17 1726 DC .ROUTE Ondansetron HCl 4 MG ONCE ONE 02/17 1715 DC 02/17 IV 02/17 1716 1721 Oxycodone/ 1 TAB Q6P PRN 02/17 2130 DC Acetaminophen PO Oxycodone/ 2 TAB Q6P PRN 02/17 2130 DC Acetaminophen PO Sodium Chloride 1,000 ML Q13H 02/17 2200 AC 02/18 IV 0020 Sodium Chloride 1,000 ML BOLUS ONE 02/17 171 DC 02/17 IV 02/17 1814 1721 Last 24 Hrs of Lab/Ariel Results Last 24 Hrs of Labs/Mics: Laboratory Tests 02/18/17 0057: Lactic Acid 1.8 02/17/172135: Urine Color Cancelled, Urine Clarity Cancelled, Urine pH Cancelled, Ur Specific [place] Cancelled, Urine Protein Cancelled, Urine Ketones Cancelled, Urine Nitrite Cancelled, Urine Bilirubin Cancelled, Urine Urobilinogen Cancelled, Ur Leukocyte Esterase Cancelled, Ur Microscopic Cancelled, Urine Hemoglobin Cancelled, Urine Glucose Cancelled 02/17/17 1845: Urine Color YEL, Urine Clarity CLEAR, Urine pH 6.0, Ur Specific [place] <= 1.005 , Urine Protein NEG, Urine Ketones TRACE H, Urine Nitrite NEG, Urine Bilirubin NEG, Urine Urobilinogen 0.2, Ur Leukocyte Esterase SMALL H, Ur Microscopic SEDIMENT EXAMINED, Urine RBC RARE, Urine WBC 15-25 H, Ur Epithelial Cells FEW, Urine Bacteria FEW H, Urine Hemoglobin TRACE-INTACT, Urine Glucose NEG 02/17/17 1700: Anion Gap 13, Estimated GFR > 60, BUN/Creatinine Ratio 23.8, Glucose 108 H, Calcium 9.8, Total Bilirubin 0.5, AST 25, ALT 38, Alkaline Phosphatase 86, Total Protein 7.4, Albumin 4.5, Globulin 2.9, Albumin/Globulin Ratio 1.6, Amylase 90, Lipase 245, TSH 1.570, Free T4 2.11, Total T3 0.90 L, CBC w Diff MAN DIFF ORDERED, RBC 5.53 H, MCV 86.2, MCH 28.5, RDW 15.4 H, MPV 8.0, Gran % 90.1 H, Lymphocytes % 5.9 L, Monocytes % 3.5, Eosinophils % 0.2, Basophils % 0.3, Absolute Granulocytes 17.8 H, Segmented Neutrophils 81 H, Band Neutrophils 7 H, Absolute Lymphocytes 1.2, Lymphocytes 6 L, Monocytes 3, Absolute Monocytes 0.7 H, Eosinophils 1, Absolute Eosinophils 0, Basophils 1, Absolute Basophils 0.1, Metamyelocytes 1, Platelet Estimate ADEQUATE, Anisocytosis 1+, PUBS MCHC 33.0 Microbiology 02/17 2230 BLOOD: Blood Culture - RECD 02/18 2220 BLOOD: Blood Culture - RECD 02/18 2136 URINE ROUT: Urine Culture - ORD Assessment/Plan Assessment: Ms. Jenkins is a 76-year-old female with past medical history of rheumatoid arthritis, hypothyroidism, recurrent colitis, recurrent UTIs, nephrolithiasis, status post cholecystectomy appendectomy and hysterectomy who presents with history of vomitin, dysuria, and abdominal pain. CT done on 02/17/2017 shows resolution of previously demonstrated thickening of the distal colon. There is a large amount of fecal residue in the distal colon. There is no evidence of small bowel obstruction. There are some nonobstructing kidney stones. #Positive UA, nausea, vomiting in an immunocompromised host: She is afebrile with a leukocytosis and a UA that is positive. Given her history of UTIs and symptoms, this is likely a UTI. However she also has history of copious vomiting today associated with some lower back pain. While the CT scan did not show any obstructing stones or colitis, these symptoms are not completely consistent with a UTI. Other items on the differential include ischemic colitis , pyelonephritis, cholangitis. She has been and remains hemodynamically stable, but does meet 2 out of 4 SIRS criteria, for leukocytosis (on prednisone) and tachycardia. She did not sleep well. Her pain is improving this morning but she is still nauseas with dysuria. -Follow up Blood culture and urine culture -Percocet for pain -Ondansetron for nausea -Clear liquid diet, advance as tolerated -Maintenance fluids -Ceftriaxone #Hypothyroidism: Totel T3 0.9. TSH and free T4 normal. -Monitor #Chronic medical problems: Hypothyroidism, rheumatoid arthritis, vitamin supplementation -Continue home folic acid, vitamin D, calcium carbonate, Lecothyroxine, methotrexate -Dicyclomine when necessary spasms #DVT prophylaxis with Lovenox full code Problem List: 1. UTI (urinary tract infection) Pain Ratin Pain Location: abdoman Pain Goal: Remain pain free Pain Plan: Tylenol Tomorrow's Labs & Rationales: CBC, BEP
[2017-02-18 04:55] LABS: ABSOLUTE BASOPHIL COUNT 0 /CUMM (0.0-0.2); ABSOLUTE EOSINOPHIL COUNT 0 /CUMM (0.0-0.7); ABSOLUTE GRANULOCYTE CT 11.2 /CUMM (1.4-6.5); ABSOLUTE LYMPH COUNT 2.4 /CUMM (1.2-3.4); ABSOLUTE MONOCYTE COUNT 0.5 /CUMM (0.10-0.60); BASOPHIL % 0.2 % (0.0-2.0); EOSINOPHIL % 0.3 % (0-5); GRANULOCYTE % 79.1 % (42.2-75.2); MEAN CORPUSCULAR HGB 28.4 PG (27.0-31.0); MEAN CORPUSCULAR HGB CONC 33.1 G/DL (33.0-37.0); MEAN CORPUSCULAR VOLUME 85.7 FL (81.0-99.0); MEAN PLATELET VOLUME 8.1 FL (7.4-10.4); PLATELET COUNT 230 /CUMM (130-400); RBC DISTRIBUTION WIDTH 15.2 % (11.5-14.5); RED BLOOD CELL CT 4.76 /CUMM (4.20-5.40); WHITE BLOOD CELL COUNT 14.1 /CUMM (4.8-10.8)
[2017-02-18 05:04] LABS: HEMATOCRIT 40.8 % (37-47)
--- NOTE | 2017-02-18 06:39 | NUR ---
PT A&Ox3, VSS, ORIENTED TO THE FLOOR. USES CALL [facility]. WILL CONTINUE TO MONITOR THIS SHIFT.
[2017-02-18 06:50] VITALS: BP 104/50
[2017-02-18 14:07] VITALS: BP 110/80
[2017-02-19 08:06] LABS: ABSOLUTE BASOPHIL COUNT 0 /CUMM (0.0-0.2); ABSOLUTE EOSINOPHIL COUNT 0.2 /CUMM (0.0-0.7); ABSOLUTE GRANULOCYTE CT 3.4 /CUMM (1.4-6.5); ABSOLUTE LYMPH COUNT 2.1 /CUMM (1.2-3.4); ABSOLUTE MONOCYTE COUNT 0.4 /CUMM (0.10-0.60); BASOPHIL % 0.4 % (0.0-2.0); GRANULOCYTE % 56.1 % (42.2-75.2); HEMATOCRIT 39.1 % (37-47); MEAN CORPUSCULAR HGB 28.8 PG (27.0-31.0); MEAN CORPUSCULAR VOLUME 87.2 FL (81.0-99.0); MEAN PLATELET VOLUME 8.3 FL (7.4-10.4); PLATELET COUNT 196 /CUMM (130-400); RBC DISTRIBUTION WIDTH 15.2 % (11.5-14.5); RED BLOOD CELL CT 4.48 /CUMM (4.20-5.40)
--- NOTE | 2017-02-19 08:33 | PN- Housestaff ---
CARMELA EATON,[facility] 02/19/17 0832: Subjective Follow-up For: UTI Subjective: PAtient seen and examined today. No overnight issues. Denies any fever,chills, nausea, voiting or SOB. Review of Systems Constitutional: Denies: see HPI. Objective Last 24 Hrs of Vital Signs/I&O Vital Signs Date Time Temp Pulse Resp B/P B/P Pulse O2 O2 Flow FiO2 Mean Ox Delivery Rate 02/19 1446 98.2 67 18 100/70 97 Room Air 02/19 0851 98.2 80 16 112/48 98 Room Air Intake & Output 02/19 1600 02/19 0800 02/19 0000 Intake Total 1300 720 880 Output Total Balance 1300 720 880 Intake, IV 500 600 600 Intake, Oral 800 120 280 Physical Exam General Appearance: Alert, Oriented X3, Cooperative, No Acute Distress Other Physical Findings: Skin: No Rashes Cardiovascular: Regular Rate, Normal S1, Normal S2, No Murmurs Lungs: Clear to Auscultation Abdomen: Diffusely tender to palpation with rebound tenderness. No guarding. Neurological: Normal Speech, Strength at 5/5 X4 Ext, Cranial Nerves 3-12 NL Extremities: No Edema Vascular: Normal Pulses Current Medications: Current Medications Sig/Ofelia Start time Last Medication Dose Route Stop Time Status Admin Acetaminophen 650 MG Q6P PRN 02/17 2130 AC 02/18 PO 0018 Calcium Carbonate 750 MG TUES THURS SAT 02/18 1000 AC 02/18 PO 0938 Ceftriaxone Sodium 1,000 MG DAILY 02/18 1000 AC 02/19 IV 0959 Cholecalciferol 2,000 IU DAILY 02/18 1000 AC 02/19 PO 0959 Dicyclomine HCl 20 MG 4 TIMES/DAY PRN 02/18 0130 AC PO Enoxaparin Sodium 40 MG DAILY@2200 02/18 2200 AC 02/18 SC 2114 Estradiol 1 GM Q48 02/18 1400 AC 02/18 TOP 1647 Folic Acid 1 MG DAILY 02/18 1000 AC 02/19 PO 0959 Levothyroxine Sodium 0.075 MG DAILY AC 02/18 0700 AC 02/19 PO 0548 Methotrexate 10 MG Q168 02/18 1000 AC 02/18 PO 0939 Multivitamins 1 TAB DAILY 02/18 1000 AC 02/19 Therapeutic PO 0959 Ondansetron HCl 4 MG Q6P PRN 02/17 2345 AC 02/17 IV 2356 Sodium Chloride 1,000 ML Q13H 02/17 2200 DC 02/19 IV 0203 Last 24 Hrs of Lab/Ariel Results Last 24 Hrs of Labs/Mics: Laboratory Tests 02/19/17 0600: CBC w Diff NO MAN DIFF REQ, RBC 4.48, MCV 87.2, MCH 28.8, RDW 15.2 H, MPV 8.3, Gran % 56.1, Lymphocytes % 33.9, Monocytes % 6.6, Eosinophils % 3.0, Basophils % 0.4, Absolute Granulocytes 3.4, Absolute Lymphocytes 2.1, Absolute Monocytes 0.4 , Absolute Eosinophils 0.2, Absolute Basophils 0, PUBS MCHC 33.0 Assessment/Plan Assessment: Ms. Jenkins is a 76-year-old female with past medical history of rheumatoid arthritis, hypothyroidism, recurrent colitis, recurrent UTIs, nephrolithiasis, status post cholecystectomy appendectomy and hysterectomy who presents with history of vomitin, dysuria, and abdominal pain. CT done on 02/17/2017 shows resolution of previously demonstrated thickening of the distal colon. There is a large amount of fecal residue in the distal colon. There is no evidence of small bowel obstruction. There are some nonobstructing kidney stones. #Positive UA, nausea, vomiting in an immunocompromised host: She is afebrile with a leukocytosis and a UA that is positive. Given her history of UTIs and symptoms, this is likely a UTI. However she also has history of copious vomiting today associated with some lower back pain. While the CT scan did not show any obstructing stones or colitis, these symptoms are not completely consistent with a UTI. Other items on the differential include ischemic colitis , pyelonephritis, cholangitis. She has been and remains hemodynamically stable, but does meet 2 out of 4 SIRS criteria, for leukocytosis (on prednisone) and tachycardia. She did not sleep well. Her pain is improving this morning but she is still nauseas with dysuria. -Follow up Blood culture and urine culture -Percocet for pain -Ondansetron for nausea -Regular diet, Fluids D/C -Ceftriaxone #Hypothyroidism: Totel T3 0.9. TSH and free T4 normal. -Monitor #Chronic medical problems: Hypothyroidism, rheumatoid arthritis, vitamin supplementation -Continue home folic acid, vitamin D, calcium carbonate, Lecothyroxine, methotrexate -Dicyclomine when necessary spasms #DVT prophylaxis with Lovenox full code Problem List: 1. UTI (urinary tract infection) Pain Ratin Pain Location: Abdomen Pain Goal: Pain 4 or less Pain Plan: Tylenol Tomorrow's Labs & Rationales: CBC(UTI) TORRIE EATON,KIMBLE 02/19/17 0956: Attending MD Review Statement Attending Statement Attending MD Statement: examined this patient, discuss w/resident/PA/RESORT HOUSEKEEPER, agreed w/resident/PA/RESORT HOUSEKEEPER, reviewed EMR data (avail), discussed with nursing, reviewed images Attending Assessment/Plan: 76-year-old female with past medical history significant for rheumatoid arthritis on methotrexate, hypothyroidism on Synthroid, recurrent UTI, nephrolithiasis, history of cholecystectomy/hysterectomy/appendectomy, and tapering dose of prednisone for a recent suspected flare of rheumatoid arthritis and recurrent UTI has been admitted to the floor with right quadrant abdominal pain and workup suggestive for yet another urinary tract infections. Her CT scan ruled out for any pyelonephritis or colitis. Patient was seen and examined on the bedside while she was sitting. No overnight issues, no fever and unremarkable physical examination. Her white count is back to normal. Urine and blood cultures so far are negative. We will advance the patient's diet to regular and will keep her on IV antibiotics today and will possibly discharge her home tomorrow on oral antibiotics.
[2017-02-19 08:51] VITALS: BP 112/48
[2017-02-19 09:47] LABS: WHITE BLOOD CELL COUNT 6.1 /CUMM (4.8-10.8)
[2017-02-19 14:46] VITALS: BP 100/70
[2017-02-19 22:21] VITALS: BP 108/60
[2017-02-20 06:48] VITALS: BP 110/62
--- NOTE | 2017-02-20 07:05 | PN- Housestaff ---
See Addendum Subjective Follow-up For: UTI Subjective: She is feeling much improved today. She is still having some mild dysuria but the frequency is not as much. She does not have abdominal pain or lower back pain now. She does feel a little bloated but had a small bowel movement yesterday. She is hoping to have another one today. She is asking about discharge today. Review of Systems Constitutional: Denies: no symptoms. Cardiovascular: Denies: no symptoms. Respiratory: Denies: no symptoms. Gastrointestinal: Denies: no symptoms. Genitourinary: Reports: see HPI. Musculoskeletal: Denies: no symptoms. Objective Last 24 Hrs of Vital Signs/I&O Vital Signs Date Time Temp Pulse Resp B/P B/P Pulse O2 O2 Flow FiO2 Mean Ox Delivery Rate 02/20 0648 98.0 62 16 110/62 95 02/19 2221 98.1 60 20 108/60 95 02/19 1446 98.2 67 18 100/70 97 Room Air 02/19 0851 98.2 80 16 112/48 98 Room Air Intake & Output 02/20 1600 02/20 0800 02/20 0000 Intake Total 360 300 Output Total Balance 360 300 Intake, IV 20 Intake, Oral 360 280 Physical Exam General Appearance: Alert, Oriented X3, Cooperative, No Acute Distress Cardiovascular: Regular Rate, Normal S1, Normal S2 Lungs: Clear to Auscultation Abdomen: Normal Bowel Sounds, Soft, No Tenderness, No Masses Neurological: Normal Speech, Normal Tone, Cranial Nerves 3-12 NL Extremities: No Edema Current Medications: Current Medications Sig/Ofelia Start time Last Medication Dose Route Stop Time Status Admin Acetaminophen 650 MG Q6P PRN 02/17 2130 AC 02/18 PO 0018 Calcium Carbonate 750 MG TUES THURS SAT 02/18 1000 AC 02/18 PO 0938 Ceftriaxone Sodium 1,000 MG DAILY 02/18 1000 AC 02/19 IV 0959 Cholecalciferol 2,000 IU DAILY 02/18 1000 AC 02/19 PO 0959 Dicyclomine HCl 20 MG 4 TIMES/DAY PRN 02/18 0130 AC PO Enoxaparin Sodium 40 MG DAILY@2200 / 2200 AC 02/19 SC 2140 Estradiol 1 GM Q48 02/18 1400 AC 02/18 TOP 1647 Folic Acid 1 MG DAILY 02/18 1000 AC 07/09 PO 0959 Levothyroxine Sodium 0.075 MG DAILY AC 02/18 0700 AC 02/20 PO 0602 Methotrexate 10 MG Q168 02/18 1000 AC 02/18 PO 0939 Multivitamins 1 TAB DAILY 02/18 1000 AC 02/19 Therapeutic PO 0959 Ondansetron HCl 4 MG Q6P PRN 02/17 2345 AC 02/17 IV 2356 Sodium Chloride 1,000 ML Q13H 02/17 2200 DC 02/19 IV 0203 Assessment/Plan Assessment: Ms. Jenkins is a 76-year-old female with past medical history of rheumatoid arthritis, hypothyroidism, recurrent colitis, recurrent UTIs, nephrolithiasis, status post cholecystectomy appendectomy and hysterectomy who presented with history of vomiting, dysuria, and abdominal pain. CT done on 02/17/2017 shows resolution of previously demonstrated thickening of the distal colon. There is a large amount of fecal residue in the distal colon. There is no evidence of small bowel obstruction. There are some nonobstructing kidney stones. Over the weekend she has continued to improve. She looks very good today. #Likely UTI in an immunocompromised host: She is doing much better now with only mild dysuria and no frequency. Her pain is also improved. She feels like she is ready to go home. Cultures are still negative. -Percocet for pain -Ondansetron for nausea -Regular diet -Switch Ceftriaxone to Keflex for total of 14 day course on discharge -Cranberry pills for discharge #Hypothyroidism: Totel T3 0.9. TSH and free T4 normal. -Monitor #Chronic medical problems: Hypothyroidism, rheumatoid arthritis, vitamin supplementation -Continue home folic acid, vitamin D, calcium carbonate, Lecothyroxine, methotrexate -Dicyclomine when necessary spasms #DVT prophylaxis with Lovenox full code Problem List: 1. UTI (urinary tract infection) Pain Ratin Pain Location: No pain Pain Goal: Remain pain free Pain Plan: See assessment and plan Tomorrow's Labs & Rationales: Discharge today
--- NOTE | 2017-02-20 09:08 | Discharge Summary ---
Visit Information Visit Dates Admission Date: 02/17/17 Discharge Date: 02/20/2017 Hospital Course Course Attending Physician: REMINGTON HENDRICKS MD Primary Care Physician: ROBERT MICHAEL MD Hospital Course: Ms. Jenkins is a 76-year-old female with past medical history of rheumatoid arthritis on methotrexate, hypothyroidism, recurrent colitis, recurrent UTIs, nephrolithiasis, status post cholecystectomy appendectomy and hysterectomy who presented with history of vomiting, dysuria, and abdominal pain. When she came into the emergency department, her vitals were within normal limits and her pain was 8-9/10. She received ondansetron and 1 L of normal saline and her pain subsided to 4/10. She had no diarrhea or constipation. Labs were significant for a white blood cell count of 19.8, normal LFTs. UA revealed small leukocyte esterase and 15-[address] of the abdomen/pelvis showed no evidence of a high-grade small bowel obstruction. It also showed some nonobstructing kidney stones. She was started on ceftriaxone for presumed UTI and has since improved. Blood and urine cultures have not grown. She now does not have much abdominal pain and only mild dysuria. #Likely UTI in an immunocompromised host: She was started on ceftriaxone IV. Her CBCs were monitored daily and her white count decreased from 19.8-6.1. She is now feeling better with only mild dysuria and and decreased frequency of urination. -Percocet for pain -Ondansetron for nausea -Regular diet -Switch Ceftriaxone IV to Keflex by mouth for total of 14 days discharge -CranMax for prevention of UTI -She will follow-up with a urologist for her recurrent UTIs. #Hypothyroidism: Total T3 0.9. TSH and free T4 normal. She was asymptomatic. #Chronic medical problems: Hypothyroidism, rheumatoid arthritis, vitamin supplementation -Home folic acid, vitamin D, calcium carbonate, Lecothyroxine, methotrexate were continued -Home Dicyclomine was continued. #DVT prophylaxis was done with Lovenox Allergies: Coded Allergies: NSAIDS (Non-Steroidal Anti-Inflamma (Severe, ANAPHYLAXIS 02/17/17) Sulfa (Sulfonamide Antibiotics) (Severe, ANAPHYLAXIS 02/17/17) naproxen (From ALEVE) (Severe, ANAPHYLAXIS 02/17/17) Penicillins (Intermediate, HIVES, COLITIS ATTACK 02/17/17) Disposition Summary Disposition Principal Diagnosis: Urinary tract infection Additional Diagnosis: Hypothyroidism, rheumatoid arthritis Discharge Disposition: home or self care Discharge Instructions General Discharge Information Code Status: Full Code Patient's Diet: Regular diet Patient's Activity: Advance as tolerated Follow-Up Instructions/Appts: Please follow-up with your PCP (Robert Michael MD). Your PCP can refer you to a urologist for further care of recurrent UTIs. Please take all medications as directed. Medications at Discharge Discharge Medications: Stop taking the following medications: Methotrexate (Methotrexate) 2.5 MG TABLET ORAL ONCE A WEEK Cholecalciferol (Vitamin D3) 1,000 UNIT TABLET ORAL DAILY Start taking the following new medications: Cephalexin (Keflex) 500 MG CAPSULE 1 Capsule ORAL TWICE DAILY Qty = 20 No Refills Cranberry Fruit Concentrate (Cran-Max) 500 MG CAPSULE 1 Capsule ORAL DAILY Qty = 30 No Refills Copies To: RHETT EATON,ROBERT Power MD Review Statement Documenting Attending: REMINGTON HENDRICKS MD
[2017-02-20 10:58] LABS: ABSOLUTE BASOPHIL COUNT 0 /CUMM (0.0-0.2); ABSOLUTE EOSINOPHIL COUNT 0.1 /CUMM (0.0-0.7); ABSOLUTE GRANULOCYTE CT 4.9 /CUMM (1.4-6.5); ABSOLUTE LYMPH COUNT 1.6 /CUMM (1.2-3.4); ABSOLUTE MONOCYTE COUNT 0.3 /CUMM (0.10-0.60); BASOPHIL % 0.3 % (0.0-2.0); EOSINOPHIL % 1.9 % (0-5); GRANULOCYTE % 70.6 % (42.2-75.2); HEMATOCRIT 40.8 % (37-47); MEAN CORPUSCULAR HGB 28.7 PG (27.0-31.0); MEAN CORPUSCULAR HGB CONC 33.2 G/DL (33.0-37.0); MEAN CORPUSCULAR VOLUME 86.5 FL (81.0-99.0); MEAN PLATELET VOLUME 8.1 FL (7.4-10.4); PLATELET COUNT 230 /CUMM (130-400); RBC DISTRIBUTION WIDTH 15.4 % (11.5-14.5); RED BLOOD CELL CT 4.72 /CUMM (4.20-5.40)
[2017-02-20] MEDS ORDERED: KEFLEX500 M1 PO ×2 (11:40→13:32)
[2017-02-20] MEDS ORDERED: CRAN-MAX500 M1 PO ×2 (11:40→13:32)
--- NOTE | 2017-02-20 13:30 | Patient Discharge Instructions ---
Discharge Instructions General Discharge Information You were seen/treated for: Urinary tract infection Watch for these problems: Frequent urination, fevers, chills, back pain or nausea, vomitingdiarrhea Special Instructions: History: Medications as directed. Please follow-up with your PCP within 1-2 weeks discharge. Please have your PCP provide a referral to see a urologist Diet Continue normal diet: Yes Activity Full Activity/No Limits: Yes Acute Coronary Syndrome Inclusion Criteria At DC or during hospital stay patient has or had the following: ACS DIAGNOSIS No Discharge Core Measures Meds if any: Prescribed or Continued at Discharge Meds if any: NOT Prescribed or Continued at Discharge Congestive Heart Failure Inclusion Criteria At DC or during hospital stay patient has or had the following: CHF DIAGNOSIS No Discharge Core Measures Meds if any: Prescribed or Continued at Discharge Meds if any: NOT Prescribed or Continued at Discharge Cerebrovascular accident Inclusion Criteria At DC or during hospital stay patient has or had the following: CVA/TIA Diagnosis No Discharge Core Measures Meds if any: Prescribed or Continued at Discharge Meds if any: NOT Prescribed or Continued at Discharge Venous thromboembolism Inclusion Criteria VTE Diagnosis No VTE Type NONE VTE Confirmed by (Test) NONE Discharge Core Measures - Per Current guidelines, there needs to be overlap - treatment for the first 5 days of Warfarin therapy. - If discharged on Warfarin prior to 5 days of - overlap therapy, the patient will need to be - assessed for post discharge needs including - *Post discharge parental anticoagulation - *Warfarin and/or parental anticoagulation education - *Follow up date to check INR post discharge At least 5 days overlap therapy as Inpatient No Meds if any: Prescribed or Continued at Discharge Note: Overlap Therapy is Warfarin and Anticoagulant Meds if any: NOT Prescribed or Continued at Discharge
== END 2017-02-20 14:45 | DRG 690 ==
LOC: ERH 16:24 → 2NA 20:34 → ERHI 20:34 → ENRESERV 21:36 → ENTRNSPT 22:26 → 2NA 23:24 → CMPTRNSPT 02-18 06:58 → 2NA 02-20 06:27
PROVIDERS: Internal Medicine; Physician Assistant; Preventive Medicine Public Health & General Preventive Medicine; ADMIT Internal Medicine
DX: N39.0 Urinary tract infection, site not specified (principal); M06.9 Rheumatoid arthritis, unspecified; E03.9 Hypothyroidism, unspecified
CPT/HCPCS: 2NASP; 36415; 74177; 81001; 82436; 87040; 87086; 93005; 93010; 96361; 96374; J0696; J1650; J2405; J3490; J8610

== ENCOUNTER 2018-03-25 12:59 | Inpatient (IN) | payer OTHER, MEDICARE ==
[~2018-03-25] VITALS: Ht 160 cm; Wt 48.7 kg
[~2018-03-25 12:59] MED LIST changes: +CRAN-MAX500 M1 PO; +KEFLEX500 M1 PO; +METHOTREXATE2.5 M2 PO; +MULTI-DAY PLUS1 EAC1 PO; -MULTI-DAY VITA1 EACH PO; +VITAMIN D2000 UNI1 PO
[2018-03-25 15:14] LABS: ABSOLUTE BASOPHIL COUNT 0 /CUMM (0.0-0.2); ABSOLUTE EOSINOPHIL COUNT 0 /CUMM (0.0-0.7); ABSOLUTE GRANULOCYTE CT 10.1 /CUMM (1.4-6.5); ABSOLUTE MONOCYTE COUNT 0.4 /CUMM (0.10-0.60); BASOPHIL % 0.3 % (0.0-2.0); EOSINOPHIL % 0.4 % (0-5); HEMATOCRIT 45.5 % (37-47); MEAN CORPUSCULAR HGB 29.2 PG (27.0-31.0); MEAN CORPUSCULAR HGB CONC 33.4 G/DL (33.0-37.0); MEAN CORPUSCULAR VOLUME 87.4 FL (81.0-99.0); MEAN PLATELET VOLUME 7.5 FL (7.4-10.4); PLATELET COUNT 283 /CUMM (130-400); RED BLOOD CELL CT 5.21 /CUMM (4.20-5.40); WHITE BLOOD CELL COUNT 11.6 /CUMM (4.8-10.8)
[2018-03-25] MEDS ORDERED: SYNTHROID75 MCG PO (15:17)
[2018-03-25] MEDS ORDERED: FOLIC ACID1 M1 PO (15:17)
[2018-03-25 15:30] LABS: GRANULOCYTE % 87.3 % (42.2-75.2)
--- NOTE | 2018-03-25 15:53 | ED GI/GU/ABDOMINAL COMPLAINT ---
History of Present Illness General Chief Complaint: Abdominal Pain/Flank Pain Stated Complaint: ABD PAIN, COLITIS ATTACK? Source: patient, family Exam Limitations: no limitations Vital Signs & Intake/Output Vital Signs & Intake/Output Vital Signs Date Time Temp Pulse Resp B/P B/P Pulse O2 O2 Flow FiO2 Mean Ox Delivery Rate 03/25 1741 98.5 86 14 161/70 99 Room Air 03/25 1623 98.2 72 20 163/70 98 Room Air 03/25 1538 95 Room Air 03/25 1312 96.6 53 15 150/37 98 Room Air Room Air Allergies Coded Allergies: NSAIDS (Non-Steroidal Anti-Inflamma (Severe, ANAPHYLAXIS 02/17/17) Sulfa (Sulfonamide Antibiotics) (Severe, ANAPHYLAXIS 02/17/17) aspirin (Severe, HIVES 03/17/17) naproxen (From ALEVE) (Severe, ANAPHYLAXIS 02/17/17) Penicillins (Intermediate, HIVES, COLITIS ATTACK 02/17/17) Reconcile Medications Cholecalciferol (Vitamin D3) (Vitamin D) 2,000 UNIT TABLET 1 TAB PO DAILY Supplement (Reported) Cranberry Fruit Concentrate (Cran-Max) 500 MG CAPSULE 1 CAP PO DAILY UTI prevention Please take as directed Folic Acid 1 MG TABLET 1 TAB PO DAILY SUPPLEMENT (Reported) Levothyroxine Sodium (Synthroid) 75 MCG TABLET 1 TAB PO DAILY AC THYROID ( Reported) Methotrexate 2.5 MG TABLET 4 TAB PO QFRI Rheumatoid arthritis (Reported) Take every monday Multivitamin-Min/Iron/FA/Vit K (Multi-Day Plus Minerals Tablet) 18 MG IRON-400 MCG-25 MCG TABLET 1 TAB PO DAILY SUPPLEMENT (Reported) Triage Note: PT TO ED FOR C/C OF ABD PAIN, CHILLS, NAUSEA WITHOUT VOMTIING X COUPLE DAYS. HX OF COLITIS. REPORTS FEELS THE SAME LAST COLITIS ATTACK. Triage Nurses Notes Reviewed? yes ? n Is pt currently ? No Onset: Abrupt Duration: hour(s): Timing: single episode today Quality/Severity: severe Location: generalized abdomen HPI: 77yo female with hx of colitis, nephrolithiasis presents emergency department complaining of abdominal pain beginning around 11:30 this morning. Patient states pain feels similar to previous episodes of colitis. Abdominal pain described as lower abdomen as well as periumbilical region. Patient states that abdominal pain began and was severe however has improved since then. Patient had 1 episode of nonbloody diarrhea since being here in the emergency department. She reports associated nausea however no vomiting. Patient reports intermittent chills today. The patient denies fevers, dysuria, sick contact, changes in diet. (Nan Jerez) Past History Travel History Traveled to [place] past 21 day No Medical History Any Pertinent Medical History? see below for history Neurological: NONE EENT: NONE Cardiovascular: NONE Respiratory: NONE Gastrointestinal: hiatal hernia, infectious colitis s/p cholecystectomy Hepatic: NONE Renal: nephrolithiasis, RECURRENT UTIs Musculoskeletal: osteoarthritis, rheumatoid arthritis Psychiatric: NONE Endocrine: hypothyroidism Blood Disorders: NONE Cancer(s): NONE WIRE COATER/Reproductive: hysterectomy vaginal dryness History of MRSA: No History of VRE: No History of CDIFF: No Surgical History Surgical History: appendectomy, cholecystectomy, hysterectomy, tonsillectomy Psychosocial History Who do you live with Patient/Self Services at Home NONE What is your primary language Bur[place]ian Tobacco Use: Never used Family History Family History, If Any: BROTHER (DE at age of 50). SISTER (nephrolithiasis). Hx Contributory? No (Nan Jerez) Review of Systems Review of Systems Constitutional: Reports: see HPI. EENTM: Reports: no symptoms. Respiratory: Reports: no symptoms. Cardiovascular: Reports: no symptoms. GI: Reports: see HPI. Genitourinary: Reports: no symptoms. Musculoskeletal: Reports: no symptoms. Skin: Reports: no symptoms. Neurological/Psychological: Reports: no symptoms. Hematologic/Endocrine: Reports: no symptoms. Immunologic/Allergic: Reports: no symptoms. All Other Systems: Reviewed and Negative (Nan Jerez) Physical Exam Physical Exam General Appearance: well developed/nourished, no apparent distress, alert, awake Head: atraumatic, normal appearance Eyes: Bilateral: normal appearance. Ears, Nose, Throat, Mouth: hearing grossly normal Neck: normal inspection, supple, full range of motion Respiratory: normal breath sounds, no respiratory distress, lungs clear Cardiovascular: regular rate/rhythm Gastrointestinal: normal bowel sounds, soft, no organomegaly, tenderness through out, non distended Back: normal inspection, normal range of motion Extremities: normal range of motion Neurologic/Psych: awake, alert, oriented x 3 Skin: intact, normal color, warm/dry Core Measures ACS in differential dx? No Sepsis Present: No Sepsis Focused Exam Completed? No (Awilda CODY,Nan Collado) Progress Differential Diagnosis: bowel obstruction, colon cancer, diverticulitis, gastritis, hernia, inflamm bowel dis, SBO, UTI/pyelo, colitis, gastroenteritis Plan of Care: Orders Procedure Date/time Status Nothing by Mouth 03/26 B Active LACTIC ACID 03/25 2149 Active ED Holding Orders 03/25 1901 Active Admit to inpatient 03/25 190 Active Vital Signs 03/25 1901 Active Code Status 03/25 1901 Active Patient Data 03/25 1850 Active LACTIC ACID 03/25 1849 Active BLOOD CULTURE 03/25 1832 Active TROPONIN LEVEL 03/25 1437 Complete LIPASE 03/25 143 Complete COMPREHENSIVE METABOLIC PANEL 03/25 1437 Complete CBC WITHOUT DIFFERENTIAL 03/25 1437 Complete URINALYSIS 03/25 1410 Complete EKG 03/25 1300 Active Current Medications Sig/Ofelia Start time Last Medication Dose Stop Time Status Admin Metronidazole 500 MG ONCE ONE 03/25 1845 AC (Flagyl) 03/25 194 N/A 1 UNIT (No Carrier) Laboratory Tests 03/25/18 1501: Anion Gap 9, Estimated GFR > 60, BUN/Creatinine Ratio 20.0, Glucose 115 H, Calcium 9.8, Total Bilirubin 0.5, AST 26, ALT 24, Alkaline Phosphatase 91, Troponin I < 0.01, Total Protein 7.3, Albumin 4.6, Globulin 2.7, Albumin/ Globulin Ratio 1.7, Lipase 171, CBC w Diff NO MAN DIFF REQ, RBC 5.21, MCV 87.4, MCH 29.2, MCHC 33.4, RDW 14.0, MPV 7.5, Gran % 87.3 H, Lymphocytes % 8.7 L, Monocytes % 3.3, Eosinophils % 0.4, Basophils % 0.3, Absolute Granulocytes 10.1 H, Absolute Lymphocytes 1.0 L, Absolute Monocytes 0.4, Absolute Eosinophils 0, Absolute Basophils 0 03/25/18 1418: Urinalysis LIGHT H, Urine Color YEL, Urine Clarity CLEAR, Urine pH 6.0, Ur Specific [place] 1.020, Urine Protein NEG, Urine Ketones NEG, Urine Nitrite NEG, Urine Bilirubin NEG, Urine Urobilinogen 0.2, Ur Leukocyte Esterase TRACE H, Ur Microscopic SEDIMENT EXAMINED, Urine RBC 1-3, Urine WBC 3-5 H, Ur Epithelial Cells FEW, Urine Bacteria FEW H, Urine Mucus MOD H, Urine Hemoglobin NEG, Urine Glucose NEG Microbiology 03/25 1925 BLOOD: Blood Culture - RECD 03/25 1923 BLOOD: Blood Culture - RECD 6:36PM - Spoke with Dr. Tim regarding this patient's CT scan findings with possible intramural abscesses. The patient was seen and evaluated by Dr. Brady with persistent abdominal tenderness on exam with rebound tenderness, peritoneal signs. Patient also has mild leukocytosis. Will admit for IV antibiotics and GI consult. Spoke with Dr. Wood regarding hospital admission. Diagnostic Imaging: Viewed by Me: CT Scan. Discussed w/RAD: CT Scan. Radiology Impression: PATIENT: NITIN HAMPTON PRESENT AGE: 77 PATIENT ACCOUNT NO: [id number] : 41 LOCATION: [facility] ORDERING PHYSICIAN: Kennedy CODY SERVICE DATE: 03/25/18 EXAM TYPE: CAT - CT ABD & PELVIS W IV CONTRAST EXAMINATION: CT ABDOMEN AND PELVIS WITH CONTRAST CLINICAL INFORMATION: Diffuse abdominal pain COMPARISON: CT 02/17/2017 TECHNIQUE: Multidetector volumetric imaging was performed of the abdomen and pelvis following IV administration of 95 mL of Optiray 320 intravenous contrast. Sagittal and coronal reformatted images were obtained on the technologist's workstation. DLP: 258 mGy-cm FINDINGS: LUNG BASES: Bibasilar atelectasis. No consolidation or effusion. LIVER, GALLBLADDER, AND BILIARY TREE: The liver is normal in size, shape, and attenuation. No focal hepatic lesion. Mild biliary ductal dilatation is present. Gallbladder surgically absent.. PANCREAS: Unremarkable. SPLEEN: The spleen enhances homogeneously. A hypodense subcentimeter lesion within the mid body of the spleen is consistent with cysts. ADRENAL GLANDS: Unremarkable. KIDNEYS AND URETERS: The kidneys enhance symmetrically. No convincing hydronephrosis. Innumerable parapelvic cysts are redemonstrated. A tiny punctate density in the superior pole of the left kidney measures 4 mm and is consistent with a nonfasting stone. BLADDER: Unremarkable. GASTROINTESTINAL TRACT: There is extensive submucosal edema involving a long segment of proximal sigmoid: With adjacent inflammatory change including marked prominence of the vasa recta. (Image 70, series 2 for example). There is a hypodense area within the wall of the proximal sigmoid: With mild rim enhancement measuring 1.3 x 1.2 cm (image 71, series 2). A similar finding is noted more superiorly within the proximal colon measuring 1.2 x 1.0 cm (image 67 , series 2). There is relative sparing of the distal sigmoid colon and rectum. There are no dilated loops of small or large bowel. No intra-abdominal free air. There is a trace amount of free fluid within the pelvis. ABDOMINAL WALL: No significant hernia is appreciated. LYMPH NODES: Normal. VASCULAR: Unremarkable. PELVIC VISCERA: Uterus is surgically absent. No adnexal masses. OSSEOUS STRUCTURES: No acute findings. IMPRESSION: Findings consistent with long segment colitis involving the proximal sigmoid colon with possible small intramural abscesses. DICTATED BY: Marium Craft MD DATE/TIME DICTATED:03/25/181756 ASSEMBLER CATERPILLAR SPIDER:TAYE DATE/TIME TRANSCRIBED:03/25/181756 CONFIDENTIAL, DO NOT COPY WITHOUT APPROPRIATE AUTHORIZATION. <Electronically signed in Other Vendor System> SIGNED BY: Marium Craft MD 03/25/181813 Initial ED EKG: sinus rhythm @52bpm, nonspecific ST changes Prior EKG: unchanged (02/18/17) (Nan Jerez) Departure Departure Disposition: STILL A PATIENT Condition: Stable Clinical Impression Primary Impression: Abdominal pain Qualifiers: Abdominal location: generalized Qualified Code: R10.84 - Generalized abdominal pain Secondary Impressions: Colitis Diarrhea Qualifiers: Diarrhea type: unspecified type Qualified Code: R19.7 - Diarrhea, unspecified Referrals: Alec EATON,Giancarlo Michele (PCP/Family) Departure Forms: Customer Survey General Discharge Information Admission Note Spoke With: Roberto Wood MD Documentation of Exam: Documentation of any treatments & extenuating circumstances including Concerns Regarding Discharge (functional status, medication knowledge or non-compliance, living conditions, etc.) that warrant an admission rather than observation: [ Colitis with possible abscesses present and mild leukocytosis requiring IV antibiotics, GI consult, repeat labs, follow up with blood cultures, premature discharge medially unsafe] (Nan Jerez) PA/SHIFT LEADER Co-Sign Statement Statement: ED Attending supervision documentation- [x] I saw and evaluated the patient. I have also reviewed all the pertinent lab results and diagnostic results. I agree with the findings and the plan of care as documented in the PA's/SHIFT LEADER's documentation. [x] I have reviewed the ED Record and agree with the PA's/SHIFT LEADER's documentation. [] Additions or exceptions (if any) to the PAs/SHIFT LEADER's note and plan are summarized below: [Pt presents with ABD pain, she has slight diffuse rebound, no guarding, normal bowel sounds. She is to be admitted for IV ABX, gastroenterology consult, IV fluids] (Caitlyn EATON,Alejandro Smith)
--- NOTE | 2018-03-25 18:14 | CT SCAN REPORT ---
EXAMINATION: CT ABDOMEN AND PELVIS WITH CONTRAST CLINICAL INFORMATION: Diffuse abdominal pain COMPARISON: CT 02/17/2017 TECHNIQUE: Multidetector volumetric imaging was performed of the abdomen and pelvis following IV administration of 95 mL of Optiray 320 intravenous contrast. Sagittal and coronal reformatted images were obtained on the technologist's workstation. DLP: 258 mGy-cm FINDINGS: LUNG BASES: Bibasilar atelectasis. No consolidation or effusion. LIVER, GALLBLADDER, AND BILIARY TREE: The liver is normal in size, shape, and attenuation. No focal hepatic lesion. Mild biliary ductal dilatation is present. Gallbladder surgically absent.. PANCREAS: Unremarkable. SPLEEN: The spleen enhances homogeneously. A hypodense subcentimeter lesion within the mid body of the spleen is consistent with cysts. ADRENAL GLANDS: Unremarkable. KIDNEYS AND URETERS: The kidneys enhance symmetrically. No convincing hydronephrosis. Innumerable parapelvic cysts are redemonstrated. A tiny punctate density in the superior pole of the left kidney measures 4 mm and is consistent with a nonfasting stone. BLADDER: Unremarkable. GASTROINTESTINAL TRACT: There is extensive submucosal edema involving a long segment of proximal sigmoid: With adjacent inflammatory change including marked prominence of the vasa recta. (Image 70, series 2 for example). There is a hypodense area within the wall of the proximal sigmoid: With mild rim enhancement measuring 1.3 x 1.2 cm (image 71, series 2). A similar finding is noted more superiorly within the proximal colon measuring 1.2 x 1.0 cm (image 67, series 2). There is relative sparing of the distal sigmoid colon and rectum. There are no dilated loops of small or large bowel. No intra-abdominal free air. There is a trace amount of free fluid within the pelvis. ABDOMINAL WALL: No significant hernia is appreciated. LYMPH NODES: Normal. VASCULAR: Unremarkable. PELVIC VISCERA: Uterus is surgically absent. No adnexal masses. OSSEOUS STRUCTURES: No acute findings. IMPRESSION: Findings consistent with long segment colitis involving the proximal sigmoid colon with possible small intramural abscesses.
--- NOTE | 2018-03-25 19:36 | History & Physical ---
See Addendum SandipPatricekayleighkathe Altamirano 03/25/181935: General Information and HPI MD Statement: I have seen and personally examined NITIN HAMPTON and documented this H&P. The patient is a 77 year old F who presented with a patient stated chief complaint of [abdominal pain x 1 day]. Source of Information: patient, old records History of Present Illness: Ms. Hampton is a 77yo F w/ PMH of Tubular adenoma (right colon 2016 s/p colonoscopy), hx of infectious colitis, hiatal hernia??, s/p cholecystectomy, nephrolithiasis s/p L ESWL, w/ recurrent UTIs, OA, RA on MTX 10mg/wk on Fridays, hypothyroidism, s/p hysterectomy 2/2 fibroid, s/p appendectomy, to ER CC of abdominal pain localized to lower abdomen/preumbilicus region starting around 11 :30am 03/25/18, similar to previous episodes of colitis. Also vomited once and had nonbloody diarrhea x 1 since ER visit. Per patient, her first episode of colitis started around 8 years ago and was hospitalized, with symptoms including N/V/D/Fever. However since then, she has been colitis-free for about 5 years until 3 years ago that she started to having colitis every year around February/March, without any specific triggers or any change of diet/outside food/sick contacts. She was following Dr. Parra in the outpatient setting and had a colonoscopy done in 2015, s/p a polyp resection showing tubular adenoma w/o malignancy. She was admitted to [place] in 02/2015 for Colitis, had a colonoscopy at 07/2016 2/2 CT findings of L colitis, at [place] around 01/2017 for colitis, and at [place] again for UTI 02/2017, and had ESWL of L nephrolithiasis by Dr. Menchaca in 03/2017. During this admission, she stated that she was in her usual state of health until 11AM 03/25 and all of sudden she started to have crampy/gassy 8-10 pain around lower ab, more on the right side, w/ one episode of chill/diaphoresis, no temp measured however, and feeling "keanu out" while she was washing dishes. No syncope event or blacked out but did endorse lightheadedness, and nausea but no vomiting. She felt like she had to go to bathroom however nothing came out at home. She then presented to ER for further eval. During ER, she had one episode of large amount of loose stool w/ a lot of gas, much darker than her normal brown color, however not black/BRBPR, and felt her pain was relieved to 4-5/10. Before this episode, she had her regular breakfast with cereal and lactaid milk, went to [employer], came back and had two waffles. No eating out in the past 3 days. Past History Travel History Traveled to [place] past 21 day No Medical History Neurological: NONE EENT: NONE Cardiovascular: NONE Respiratory: NONE Gastrointestinal: hiatal hernia, infectious colitis s/p cholecystectomy Hepatic: NONE Renal: nephrolithiasis, RECURRENT UTIs Musculoskeletal: osteoarthritis, rheumatoid arthritis Psychiatric: NONE Endocrine: hypothyroidism Blood Disorders: NONE Cancer(s): NONE BLENDING MACHINE OPERATOR/Reproductive: hysterectomy vaginal dryness History of MRSA: No History of VRE: No History of CDIFF: No Surgical History Surgical History: appendectomy, cholecystectomy, hysterectomy, tonsillectomy Past Family/Social History Family History Relations & Conditions if any BROTHER (NH at age of 50). SISTER (nephrolithiasis). Psychosocial History Who Do You Live With? self Services at Home: NONE Primary Language: Albanian Functional Ability ADLs Independent: dressing, eating, toileting, bathing. Ambulation: independent IADLs Independent: shopping, housework, finances, food prep, telephone, transportation , medication admin. Employment History Employment Retired Profession/Employer Banker Review of Systems Review of Systems Constitutional: Reports: see HPI, chills. Denies: fever, malaise. GI: Reports: abdominal pain, bloating, nausea, changes in stool, vomiting. Genitourinary: Denies: discharge, dysuria, frequency. Exam & Diagnostic Data Last 24 Hrs of Vital Signs/I&O Vital Signs Date Time Temp Pulse Resp B/P B/P Pulse O2 O2 Flow FiO2 Mean Ox Delivery Rate 03/25 2249 98.9 70 18 132/68 96 Room Air 03/25 2115 99.0 74 14 146/67 97 Room Air 03/25 1741 98.5 86 14 161/70 99 Room Air 03/25 1623 98.2 72 20 163/70 98 Room Air 03/25 1538 95 Room Air 03/25 1312 96.6 53 15 150/37 98 Room Air Room Air Intake & Output 03/25 1600 03/25 0800 08 0000 Intake Total 0 Output Total Balance 0 Intake, Oral 0 Patient 112 lb Weight Weight Reported by Patient Measurement Method Physical Exam General Appearance Alert, Oriented X3, Cooperative, No Acute Distress Skin No Rashes Neck No JVD Cardiovascular Regular Rate, Normal S1, Normal S2 Lungs Clear to Auscultation, Normal Air Movement Abdomen Soft, tenderness to b/l lower quadrants, no peritoneal signs Neurological Strength at 5/5 X4 Ext, Sensation Intact Extremities No Edema Last 24 Hrs of Labs/Ariel: Laboratory Tests 03/25/181934: Lactic Acid Cancelled 03/25/181934: Lactic Acid 1.1 03/25/18 1501: Anion Gap 9, Estimated GFR > 60, BUN/Creatinine Ratio 20.0, Glucose 115 H, Calcium 9.8, Total Bilirubin 0.5, AST 26, ALT 24, Alkaline Phosphatase 91, Troponin I < 0.01, Total Protein 7.3, Albumin 4.6, Globulin 2.7, Albumin/ Globulin Ratio 1.7, Lipase 171, CBC w Diff NO MAN DIFF REQ, RBC 5.21, MCV 87.4, MCH 29.2, MCHC 33.4, RDW 14.0, MPV 7.5, Gran % 87.3 H, Lymphocytes % 8.7 L, Monocytes % 3.3, Eosinophils % 0.4, Basophils % 0.3, Absolute Granulocytes 10.1 H, Absolute Lymphocytes 1.0 L, Absolute Monocytes 0.4, Absolute Eosinophils 0, Absolute Basophils 0 03/25/18 1418: Urinalysis LIGHT H, Urine Color YEL, Urine Clarity CLEAR, Urine pH 6.0, Ur Specific [place] 1.020, Urine Protein NEG, Urine Ketones NEG, Urine Nitrite NEG, Urine Bilirubin NEG, Urine Urobilinogen 0.2, Ur Leukocyte Esterase TRACE H, Ur Microscopic SEDIMENT EXAMINED, Urine RBC 1-3, Urine WBC 3-5 H, Ur Epithelial Cells FEW, Urine Bacteria FEW H, Urine Mucus MOD H, Urine Hemoglobin NEG, Urine Glucose NEG Microbiology 03/25 2036 STOOL: Ova and Parasite Macroscopic Exam - ORD 03/25 2036 STOOL: Stool Culture - ORD 03/25 1925 BLOOD: Blood Culture - RECD 03/25 1923 BLOOD: Blood Culture - RECD Assessment/Plan Assessment: This is an immunocompromised (on Methotrexate) 77yo F w/ PMH as above presented to ER with sudden onset of Ab pain w/ diarrhea x 1 & Nausea, nonbloody nonbilious, with postive leukocytosis and CT findings of right sided colitis, likely infectious pending rule out other sources. Has had several bouts in the past of colitis. Patient's current RA MTX meds leave patient in relatively immunosuppressed state however her WBC was reactive to infection at this point. No measured fevers at home. Problem list/Assessment/Hospital Course: #Proximal sigmoid colitis, likely infectious, pending r/o other sources #HTN, incidental, likely 2/2 pain #PMH of Tubular adenoma (right colon 2015), hx of infectious colitis, hiatal hernia, s/p cholecystectomy, nephrolithiasis s/p L ESWL, w/ recurrent UTIs, OA, RA, hypothyroidism, s/p hysterectomy, appendectomy - Admit to general medicine - Vitals per protocol, monitor I&O per protocol. - Keep NPO for now - Continuous IVF 150cc/hr - Continue ceftriaxone + flagyl for G+/G- and most anaerobes coverage. - Continue all home meds, however holding MTX for now. - Pending GI Consult. - Pending cultures including blood/stool culture/ova/parasites, etc. - Pain per pathway DVT prophylaxis Pharm PPX + ALPS NPO IV Access: Peripheral IV Full Code Dispo: likely [facility] As Ranked By This Provider Problem List: 1. Abdominal pain Qualifiers Abdominal location: generalized Qualified Code: R10.84 - Generalized abdominal pain 2. Colitis Core Measures/Misc (04/30) Acute Coronary Syndrome ACS Diagnosis: No Congestive Heart Failure Congestive Heart Failure Diagnosis No Cerebrovascular Accident CVA/TIA Diagnosis: No VTE (View Protocol) VTE Risk Factors Age>40 No Mechanical VTE Prophylaxis d/t N/A MechProphylax Ordered No VTE Pharm Prophylaxis d/t NA PharmProphylax ordered Sepsis (View protocol) Sepsis Present: No If YES complete Sepsis Event Note If YES complete Sepsis Event Note Faith Aguilar 03/25/181936: Core Measures/Misc (04/30) Sepsis (View protocol) If YES complete Sepsis Event Note If YES complete Sepsis Event Note Resident Review Statement Resident Statement: examined this patient, discussed with purchasing intern, agreed with purchasing intern, discussed with family, reviewed EMR data (avail), discussed with nursing , discussed with case mgmt, reviewed images, amended to note Other Findings: Ms. Hampton is a 77yo F w/ PMH of Tubular adenoma (right colon 2016 s/p colonoscopy), hx of infectious colitis, hiatal hernia??, s/p cholecystectomy, nephrolithiasis s/p L ESWL, w/ recurrent UTIs, OA, RA on MTX 10mg/wk, hypothyroidism, s/p hysterectomy 2/2 fibroid, s/p appendectomy, to ER CC of ab pain at lower ab/preimbilicus regionstarting 11:30 03/25/18, similar to previous episodes of colitis. Also vomited once and had nonbloody diarrhea x 1 since ER visit. Per patient, her first episode of colitis started around 8 years ago and was hospitalized, with symptoms including N/V/D/Fever. However ever since then, she has been colitis-free for about 5 years until 3 years ago that she started to having colitis every year around , without any specific triggers or any change of diet/outside food/sick contacts. She was following Dr. Parra in outpatient setting and had colonoscopy done in 2015, s/p a polyp resection showing tubular adenoma w/o malignancy. She was admitted to [place] in 02/2015 for Colitis, had a colonoscopy at 07/2016 2/2 CT findings of L colitis, at [place] around 01/2017 for colitis, and at [place] again for UTI 02/2017, and had ESWL of L nephrolithiasis by Dr. Menchaca in 03/2017. This time, she stated that she was in her usual state of health until 11AM 03/25 that all of sudden she started to have this crampy/gasy 8-10 pain around lower ab, more on the right side, w/ one episode of chill/diaphoresis, no temp measured however, and feeling "keanu out" while she was washing dishes. No syncope event or blacked out but did endorse lightheadedness, and nausea but no vomiting. She felt like to go to bathroom however nothing came out at home. She then presented to ER for further eval. During ER, she had one episode of large amount of loose stool w/ a lot of gas, much more darker than her normal brown color, however not black/BRBPR, and felt her pain was much relieved to 4-5/10. Before this episode, she had her regular breakfast with cereal and lactaid milk, went to [employer], came back and had two waffles. No eating out in the past 3 days. -Baselines: Ambulated freely at home without family medicine physician assistant. Lives by herself. 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 -Smoking: denied -Alcohol: rare -Drugs: denied -Outpt physicians: Dr. Patrick Parra for GI, Dr. Michael for PCP -Daytime meds: On admission, Vitals: stable afebrile, stable, BP 161/70, 99 RA Physical exam as above. Pertinent findings include lower quadrant Ab tenderness more on the RLQ, increased w/ palpation and +ve rebound tenderness. Otherwise grossly normal. -CBC: Mild leukocytosis 11.6, otherwise unremarkbale -CMP: WNL -UA/Microbiology: Trace +ve LE/bacteria/WBC. No previous +ve stool culture. Had Urine culture +ve for E.Coli/Enterobacter -AB CT: Findings consistent with long segment colitis involving the proximal sigmoid colon with possible small intramural abscesses. -EKG: NSR w/o significant ST-T abnormalities, unchanged from previous. -Last Echo: none in our system -Interventions in ER: Ceftriaxone/Flagyl x 1 This is a 77yo F w/ PMH as above presented to ER with sudden onset of Ab pain w/ diarrhea x 1 & Nausea, with postive leukocytosis and CT findings of right sided colitis, likely infectious pending rule out other sources. Patient's current RA MTX meds could have put patient into immunosuppressed state however her WBC was reactive to infection at this point. Unknown causes of why she keeps on having annual recurrent colitis without any specific triggers. Problem list/Assessment/Hospital Course: #Proximal sigmoid colitis, likely infectious, pending r/o other sources #HTN, incidental, likely 2/2 pain #PMH of Tubular adenoma (right colon 2015), hx of infectious colitis, hiatal hernia, s/p cholecystectomy, nephrolithiasis s/p L ESWL, w/ recurrent UTIs, OA, RA, hypothyroidism, s/p hysterectomy, appendectomy - Admit to general medicine - Vitals per protocol, monitor I&O per protocol. - Keep NPO for now - Continuous IVF 150cc/hr - Continue ceftriaxone + flagyl for G+/G- and most ananerobes coverage. - Continue all home meds, however holding MTX for now. - Hemoccult stools - Pending GI Consult. - Pending cultures including blood/stool culture/ova/parasites, etc. - Pain per pathway DVT prophylaxis ALPS only as pending r/o if any GI bleeding/bloody stool NPO IV Access: Peripheral IV Full Code Dispo: likely [facility] Roberto Wodo MD 03/26/18 0013: General Information and HPI MD Statement: I have seen and personally examined BERTANITIN Deepika and documented this H&P. The patient is a 77 year old F who presented with a patient stated chief complaint of [abdominal pain]. Source of Information: patient Allergies/Medications Allergies: Coded Allergies: NSAIDS (Non-Steroidal Anti-Inflamma (Severe, ANAPHYLAXIS 02/17/17) Sulfa (Sulfonamide Antibiotics) (Severe, ANAPHYLAXIS 02/17/17) aspirin (Severe, HIVES 03/17/17) naproxen (From ALEVE) (Severe, ANAPHYLAXIS 02/17/17) Penicillins (Intermediate, HIVES, COLITIS ATTACK 02/17/17) Home Med list Cholecalciferol (Vitamin D3) (Vitamin D) 2,000 UNIT TABLET 1 TAB PO DAILY Supplement (Reported) Cranberry Fruit Concentrate (Cran-Max) 500 MG CAPSULE 1 CAP PO DAILY UTI prevention Please take as directed Folic Acid 1 MG TABLET 1 TAB PO DAILY SUPPLEMENT (Reported) Levothyroxine Sodium (Synthroid) 75 MCG TABLET 1 TAB PO DAILY AC THYROID ( Reported) Methotrexate 2.5 MG TABLET 4 TAB PO QFRI Rheumatoid arthritis (Reported) Take every monday Multivitamin-Min/Iron/FA/Vit K (Multi-Day Plus Minerals Tablet) 18 MG IRON-400 MCG-25 MCG TABLET 1 TAB PO DAILY SUPPLEMENT (Reported) Past History Medical History Gastrointestinal: infectious colitis s/p cholecystectomy Renal: RECURRENT UTIs Musculoskeletal: osteoarthritis, rheumatoid arthritis Endocrine: hypothyroidism BLENDING MACHINE OPERATOR/Reproductive: hysterectomy vaginal dryness Surgical History Surgical History: appendectomy, cholecystectomy, hysterectomy, tonsillectomy Past Family/Social History Psychosocial History Smoking Status: Never Smoked ETOH Use: occasional use Illicit Drug Use: denies illicit drug use Employment History Employment Retired Review of Systems Review of Systems Constitutional: Reports: see HPI. Exam & Diagnostic Data Last 24 Hrs of Vital Signs/I&O Vital Signs Date Time Temp Pulse Resp B/P B/P Pulse O2 O2 Flow FiO2 Mean Ox Delivery Rate 03/25 2249 98.9 70 18 132/68 96 Room Air 03/25 2115 99.0 74 14 146/67 97 Room Air 03/25 1741 98.5 86 14 161/70 99 Room Air 03/25 1623 98.2 72 20 163/70 98 Room Air 03/25 1538 95 Room Air 03/25 1312 96.6 53 15 150/37 98 Room Air Room Air Intake & Output 03/26 0800 03/26 0000 03/25 1600 Intake Total 275 0 Output Total Balance 275 0 Intake, IV 275 Intake, Oral 0 Patient 113 lb 112 lb Weight Weight Bed scale Reported by Patient Measurement Method Physical Exam General Appearance Alert, Oriented X3, Cooperative, No Acute Distress Skin No Rashes HEENT Atraumatic, PERRLA, EOMI Neck Supple, No JVD Lymphatic Axillary nl, Cervical nl Cardiovascular Regular Rate, Normal S1, Normal S2 Lungs Clear to Auscultation, Normal Air Movement Abdomen tenderness to b/l lower quadrants, no peritoneal signs Neurological Normal Speech Extremities No Edema Sepsis Peripheral Pulse Location: Dorsalis Pedis Sepsis Peripheral Pulse Exam: Normal Sepsis Cap Refill Exam: <2 Sec Last 24 Hrs of Labs/Ariel: Laboratory Tests 03/25/181934: Lactic Acid Cancelled 03/25/181934: Lactic Acid 1.1 03/25/18 1501: Anion Gap 9, Estimated GFR > 60, BUN/Creatinine Ratio 20.0, Glucose 115 H, Calcium 9.8, Total Bilirubin 0.5, AST 26, ALT 24, Alkaline Phosphatase 91, Troponin I < 0.01, Total Protein 7.3, Albumin 4.6, Globulin 2.7, Albumin/ Globulin Ratio 1.7, Lipase 171, CBC w Diff NO MAN DIFF REQ, RBC 5.21, MCV 87.4, MCH 29.2, MCHC 33.4, RDW 14.0, MPV 7.5, Gran % 87.3 H, Lymphocytes % 8.7 L, Monocytes % 3.3, Eosinophils % 0.4, Basophils % 0.3, Absolute Granulocytes 10.1 H, Absolute Lymphocytes 1.0 L, Absolute Monocytes 0.4, Absolute Eosinophils 0, Absolute Basophils 0 03/25/18 1418: Urinalysis LIGHT H, Urine Color YEL, Urine Clarity CLEAR, Urine pH 6.0, Ur Specific [place] 1.020, Urine Protein NEG, Urine Ketones NEG, Urine Nitrite NEG, Urine Bilirubin NEG, Urine Urobilinogen 0.2, Ur Leukocyte Esterase TRACE H, Ur Microscopic SEDIMENT EXAMINED, Urine RBC 1-3, Urine WBC 3-5 H, Ur Epithelial Cells FEW, Urine Bacteria FEW H, Urine Mucus MOD H, Urine Hemoglobin NEG, Urine Glucose NEG Microbiology 03/25 2036 STOOL: Ova and Parasite Macroscopic Exam - ORD 03/25 2036 STOOL: Stool Culture - ORD 03/25 1925 BLOOD: Blood Culture - RECD 03/25 1923 BLOOD: Blood Culture - RECD Core Measures/Misc (04/30) Sepsis (View protocol) If YES complete Sepsis Event Note If YES complete Sepsis Event Note Attending MD Review Statement Attending Statement Attending MD Statement: examined this patient, discuss w/resident/PA/HUMAN SERVICES ASSISTANT, agreed w/resident/PA/HUMAN SERVICES ASSISTANT, reviewed EMR data (avail), amended to note Attending Assessment/Plan: This patient is a 77 year old female with a significant past medical history for Tubular adenoma (right colon 2016 s/p colonoscopy), history of infectious colitis, cholecystectomy, nephrolithiasis w/ recurrent UTIs, OA, RA on MTX 10mg/ wk, hypothyroidism, hysterectomy, appendectomy, came to the ER with abdominal pain localized to lower abdomen/rock-umbilicus region starting around 11:30am, similar to previous episodes of colitis. She has been colitis-free for about 5 years until 3 years ago when she started having colitis every year around February/ March, without any specific triggers or any change of diet/outside food/sick contacts. She was in her usual state of health until 11AM and all of sudden she started to have crampy/gassy 8-9/10 pain around lower ab, more on the right side , w/ one episode of chill/diaphoresis. She came to the ER for further evaluation while in the ED her symptoms improved with a bowel movement, her vital signs remained stable, mild leukocytosis 11.6, CT ABD/PELV - Findings consistent with long segment colitis involving the proximal sigmoid colon with possible small intramural abscesses. Admit to general medicine for pain colitis and intramural abscesses. Keep nothing by mouth, hold blood thinners, gentle hydration, ceftriaxone and metronidazole for patient with penicillin allergy previous utilization of cephalosporins, rule out infectious cause of diarrhea and GI consult. Full code
[2018-03-25 22:49] VITALS: BP 132/68
--- NOTE | 2018-03-25 23:48 | Cons- Gastroenterology ---
General Information and HPI Consulting Request Date of Consult: 03/25/18 Requested By: Roberto Wood MD Reason for Consult: I was called by the [facility] earlier this evening on behalf of the hospitalist service, to assess an abnormal CT and abdominal pain, in a patient with known, intermittent, left sided focal segmental colitis. The patient is being seen in coverage for Dr. Qasim Parra. Source of Information: patient, old records Exam Limitations: no limitations History of Present Illness: 77 y/o female, non-HTN, non-DM, with history of intermittent left-sided focal segmental colitis, history of colon tubular adenoma, HH, OA, RA on MTX 10 mg/ week on Fridays, hypoT4, recurrent UTI, renal stones (? type), post ESWL, APPY, CCKY, TAHBSO (fibroids), T&A, & benign breast bxs. There is no history of documented IBD. 05/21/08: Colonoscopy per Dr. Mayco Parra-*ischemic colitis at 40 cm. 07/17/16: Colonoscopy to per Dr. Mayco Parra for left-sided colitis on CT- * subtle fibrosis from 40-45 cm, with biopsies unremarkable, plus removal of 2 diminutive right colon benign tubular adenomas. The patient had multiple allergies, including NSAIDs, ASA, Sulfa, & PCN, but she had tolerated cephalosporins in the past. The patient claimed she was admitted to [facility] in 01/2017 after a fall, and was then admitted to [facility] in 02/2017 for UTI. She subsequently had ESWL of left-sided nephrolithiasis in 03/2017. The patient presented to the [facility] 03/25/18, arriving 12:59 PM, complaining of bilateral lower abdominal pain, starting at 11:30 AM the day of admission, similar to her previous episodes of colitis. Upon arrival, BP 150/37, P 53, RR 15, T 96.6, O2 sat RA 98%. She had one episode of nonbloody diarrhea, and nausea , without any vomiting. She denied any fever, but had subjective chills. Her appetite was diminished. The lower abdominal pain was described as crampy and gassy, maximum "8 out of 10", perhaps slightly more on the RLQ than the LLQ. She felt lightheaded, but there was no CP, SOB, palpitations, or syncope. She felt like she had to go the bathroom at home, but could not defecate. Upon arriving in the ER, she had one episode of large loose stool, passing increased flatus. After this, her pain went down to a "4 out of 10". She had her regular breakfast of cereal with Lactaid milk and 2 waffles earlier this morning. She denied taking any NSAIDS (which she was allergic to). She denied any sick contacts, rule out food ingestion, point source, recent travel, or recent antibiotics. She denied any symptoms of UTI. She denied any gross feces in the urine or pneumaturia. She had no BAG PRINTER symptoms. She denied any vaginal spotting or discharge. She denied any weight loss. She denied any rashes. She had chronic mild arthralgias from her OA and RA. There was no FHx of GI Ca, IBD, additional GI disease, or inherited liver disease. She denied any cigarettes, EtOH, or illicit drugs. The patient was given IV fluids. She was NPO. She was empirically rxd Ceftriaxone 1g IV daily & Flagyl 500 mg IV Q8h, & Tylenol as needed. She had started to feel a little better. 07/28/16: stool Ag H. pylori- neg. 10/05/17: nl IgA 128, tTG Ab- neg, DGP Ab- neg. 10/08/17: lactoferin- neg. 03/25/18: WBC 11.6 (87% gran/10 gran Ab), H/H 15.2/45.5, MCV 87.4, RDW 14.0, PLT 283, glu 115, BUN/Cr 16/0.8, GFR > 60, Na 138, K 3.9, HCO3 26, AG 9, lipase 171, Ca 9.8, albumin 4.6, globulin 2.7, TBil 0.5, alk phos 91, AST 26, ALT 24, troponin < 0.01. 03/25/18: U/A- clear, yellow, 1.020, 6.0, 1-3 RBC, 3-5 WBC, few bact, neg nitrite, tr esterase. 03/25/18: BC x 2- pending. 03/25/18: EKG- SB @ 52, nl axis, nl in, NSST. 03/25/18: CT ABD & PELVIS W IV CONTRAST (*personally reviewed by myself with Dr. Marium Craft, of [facility])- Findings consistent with long segment colitis involving the proximal sigmoid colon with *possible small intramural abscesses, & adjacent inflammatory change. Relative sparing of the distal sigmoid and rectum. No obstruction, free air, or ascites, aside from trace amount of free fluid in the pelvis. Bibasilar atelectasis. Normal liver. Post CCKY with mild postop ductal dilatation. Normal pancreas. Splenic cysts. No hydronephrosis. Innumerable parapelvic cysts. 4 mm nonobstructing left renal stone. Post TAHBSO. (*Upon my review with Dr. Craft, of [facility], the questionable intramural abscess was soft at best. Perhaps there was a 1 ml pocket in the wall of the left colon, otherwise negative. *Certainly, there was nothing amenable to percutaneous drainage, nor was there any diverticulitis). *As per my discussion with Dr. Craft, assuming the patient had a benign abdominal exam, the feeling was that she colud get a dose of IV antibiotics in the ER and probably go home on oral antibiotics. By the time this was conveyed to the ER, the patient had already been admitted to the hospitalist service, as the ER felt there were some abdominal findings to warrant admission. Allergies/Medications Allergies: Coded Allergies: NSAIDS (Non-Steroidal Anti-Inflamma (Severe, ANAPHYLAXIS 02/17/17) Sulfa (Sulfonamide Antibiotics) (Severe, ANAPHYLAXIS 02/17/17) aspirin (Severe, HIVES 03/17/17) naproxen (From ALEVE) (Severe, ANAPHYLAXIS 02/17/17) Penicillins (Intermediate, HIVES, COLITIS ATTACK 02/17/17) Home Med List: Cholecalciferol (Vitamin D3) (Vitamin D) 2,000 UNIT TABLET 1 TAB PO DAILY Supplement (Reported) Cranberry Fruit Concentrate (Cran-Max) 500 MG CAPSULE 1 CAP PO DAILY UTI prevention Please take as directed Folic Acid 1 MG TABLET 1 TAB PO DAILY SUPPLEMENT (Reported) Levothyroxine Sodium (Synthroid) 75 MCG TABLET 1 TAB PO DAILY AC THYROID ( Reported) Methotrexate 2.5 MG TABLET 4 TAB PO QFRI Rheumatoid arthritis (Reported) Take every monday Multivitamin-Min/Iron/FA/Vit K (Multi-Day Plus Minerals Tablet) 18 MG IRON-400 MCG-25 MCG TABLET 1 TAB PO DAILY SUPPLEMENT (Reported) Current Medications: Current Medications Sig/Ofelia Start time Last Medication Dose Route Stop Time Status Admin Acetaminophen 650 MG Q6P PRN 03/25 2030 AC 03/25 PO 2217 Ceftriaxone Sodium 1,000 MG 1900 03/26 1900 AC IV Ceftriaxone Sodium 0 .STK-MED ONE 03/25 1942 DC .ROUTE Ceftriaxone Sodium 1,000 MG ONCE ONE 03/25 1845 DC 03/25 IV 03/25 Enoxaparin Sodium 40 MG DAILY 03/26 900 AC SC Folic Acid 1 MG DAILY 03/26 900 AC PO Levothyroxine Sodium 0.075 MG DAILY AC 03/26 07 AC PO Metronidazole 500 MG Q8H 03/26 300 AC N/A 1 UNIT IV Metronidazole 500 MG ONCE ONE 03/25 1845 DC 03/25 N/A 1 UNIT IV 03/25 Sodium Chloride 1,000 ML .[id number] 03/25 220 AC 03/25 IV 03/26 1119 2219 Past History Travel History Traveled to [place] past 21 day No Medical History Blood Transfusion Hx: Yes Neurological: NONE EENT: NONE Cardiovascular: NONE Respiratory: NONE Gastrointestinal: hiatal hernia, infectious colitis s/p cholecystectomy Hepatic: NONE Renal: nephrolithiasis (? type-> ESWL), RECURRENT UTIs Musculoskeletal: degen joint disease, osteoarthritis, rheumatoid arthritis Psychiatric: NONE Endocrine: hypothyroidism Blood Disorders: NONE Cancer(s): NONE BAG PRINTER/Reproductive: TAHBSO- fibroids; vaginal dryness Surgical History Surgical History: appendectomy, breast biopsy (benign B/L.), cholecystectomy, hysterectomy (TAHBSO fibroids), tonsillectomy Family History Relations & Conditions If Any: BROTHER (CA at age of 50). SISTER (nephrolithiasis). MOTHER, , Age 101; Cause: Old age. FATHER, , Age 90; Cause: Prostate CA. Psychosocial History Where Do You Live? Home Who Do You Live With? self Services at Home: None, NONE Primary Language: Azeri Smoking Status: Never Smoked ETOH Use: denies use Illicit Drug Use: denies illicit drug use Living Will? yes Power of Small Animal Caretaker/HCP? no Other Social History: since 2012. Lives alone. 1 son & 1 dtr- [employer]. Retired from [employer]. No cigarettes, EtOH, or illicit drugs. Functional Ability ADLs Independent: dressing, eating, toileting, bathing. Ambulation: independent IADLs Independent: shopping, housework, finances, food prep, telephone, transportation , medication admin. Employment History Employment: Retired Profession/Employer: Banker Review of Systems Review of Systems: Full 14 point review of systems otherwise noncontributory, and as above. Review of Systems Constitutional: Reports: chills, malaise. Denies: diaphoresis, fever, weakness, unexplained weight loss. EENTM: Denies: blurred vision, double vision, visual changes, eye pain, eye drainage, eye tearing, icterus, ear discharge, ear pain, ear redness, hearing changes, nasal congestion, epistaxis, nasal pain, throat pain, throat swelling, mouth pain, tooth pain. Cardiovascular: Denies: chest pain, edema, orthopena, palpitations, peripheral edema, syncope. Respiratory: Denies: cough, hemoptysis, orthopnea, short of breath, sputum production, stridor, wheezing. GI: Reports: abdominal pain (B/L lower quadrant), diarrhea (x 1), nausea. Denies: bloating, constipation, distention, bowel incontinence, melena, bloody stool, changes in stool, vomiting, steatorrhea. Genitourinary: Denies: discharge, dysuria, frequency, hematuria, hesitation, nocturia, pain, urgency. Musculoskeletal: Denies: back pain, gout, joint pain, joint swelling, muscle pain, muscle stiffness, neck pain. Skin: Denies: cysts, change in skin color, change in hair/nails, dryness, erythema, jaundice, lesions, lymphangitis, lumps, moles, rash. Neurological/Psychological: Denies: anxiety, ataxia, cognitive dysfunction, confusion, depressed, dementia, emotional problems, headache, numbness, paresthesia, pre-existing deficit, petit mal seizures, tingling, tremors, tonic-clonic seizures, unable to move lower ext , unable to move upper ext, weakness, other. Hematologic/Endocrine: Denies: bruising, bleeding, polyuria, polydipsia. Immunologic/Allergic: Denies: splenectomy, HIV/AIDS, lymphadenopathy. All Other Systems: Reviewed and Negative Exam & Diagnostic Data Vital Signs and I&O Vital Signs Date Time Temp Pulse Resp B/P B/P Pulse O2 O2 Flow FiO2 Mean Ox Delivery Rate 03/25 2249 98.9 70 18 132/68 96 Room Air 03/25 2115 99.0 74 14 146/67 97 Room Air 03/25 1741 98.5 86 14 161/70 99 Room Air 03/25 1623 98.2 72 20 163/70 98 Room Air 03/25 1538 95 Room Air 03/25 1312 96.6 53 15 150/37 98 Room Air Room Air Intake & Output 03/26 0400 03/25 1600 03/25 0400 03/24 1600 03/24 0400 03/23 1600 Intake Total 275 0 Output Total Balance 275 0 Intake, IV 275 Intake, Oral 0 Patient 113 lb 112 lb Weight Weight Bed scale Reported by Patient Measurement Method Physical Exam: Well-developed, well-nourished female, nontoxic appearing, in no apparent distress. Sclera anicteric. Conjunctiva pink. Oropharynx clear. No oral thrush. No aphthous ulcers. There is no adenopathy, thyromegaly, or JVD. No peripheral stigmata of inflammatory bowel disease or chronic liver disease on exam. No spiders on the anterior chest wall. Breast & pelvic exams: API. No CVA tenderness. No spine tenderness. Lungs: clear to A&P. No wheezing, rales, or rhonchi. Heart exam: regular rate rhythm, S1 and S2, without any murmur. Abdominal exam: normal bowel sounds, soft belly, mildly distended, mild B/L lower quadrant tenderness, RLQ > LLQ, without guarding or rebound. No mass. No organomegaly. No fluid shift. No pulsatile mass. Digital rectal exam (done by myself 03/25/18, with the assistance of the pt's RNZakiya): brown stool, OB- neg, without any mass, normal sphincter tone, nontender, no external hemorrhoid, no fissure, no perianal disease. Extremities without C, C, or E. No palpable cords. No rash. Mild DJD/RA. No active crepitus. No palmar erythema. No Dupuytren's contractures. Distal pulses 2+ bilaterally. DTRs 2+ bilaterally. Right handed/ Motor 5/5 B/L. Alert and oriented x 3. No tremor. No asterixis. Results Pertinent Lab Results: Laboratory Tests 03/25 03/25 03/25 1935 1935 1501 Chemistry Sodium (137 - 145 mmol/L) 138 Potassium (3.5 - 5.1 mmol/L) 3.9 Chloride (98 - 107 mmol/L) 104 Carbon Dioxide (22 - 30 mmol/L) 26 Anion Gap (5 - 16) 9 BUN (7 - 17 mg/dL) 16 Creatinine (0.5 - 1.0 mg/dL) 0.8 Estimated GFR (>60 ml/min) > 60 BUN/Creatinine Ratio (7 - 25 %) 20.0 Glucose (65 - 99 mg/dL) 115 H Lactic Acid (0.7 - 2.1 mmol/L) Cancelled 1.1 Calcium (8.4 - 10.2 mg/dL) 9.8 Total Bilirubin (0.2 - 1.3 mg/dL) 0.5 AST (14 - 36 U/L) 26 ALT (9 - 52 U/L) 24 Alkaline Phosphatase (<127 U/L) 91 Troponin I (< 0.11 ng/ml) < 0.01 Total Protein (6.3 - 8.2 g/dL) 7.3 Albumin (3.5 - 5.0 g/dL) 4.6 Globulin (1.9 - 4.2 gm/dL) 2.7 Albumin/Globulin Ratio (1.1 - 2.2 %) 1.7 Lipase (23 - 300 U/L) 171 Hematology CBC w Diff NO MAN DIFF REQ WBC (4.8 - 10.8 /CUMM) 11.6 H RBC (4.20 - 5.40 /CUMM) 5.21 Hgb (12.0 - 16.0 G/DL) 15.2 Hct (37 - 47 %) 45.5 MCV (81.0 - 99.0 FL) 87.4 MCH (27.0 - 31.0 PG) 29.2 MCHC (33.0 - 37.0 G/DL) 33.4 RDW (11.5 - 14.5 %) 14.0 Plt Count (130 - 400 /CUMM) 283 MPV (7.4 - 10.4 FL) 7.5 Gran % (42.2 - 75.2 %) 87.3 H Lymphocytes % (20.5 - 51.1 %) 8.7 L Monocytes % (1.7 - 9.3 %) 3.3 Eosinophils % (0 - 5 %) 0.4 Basophils % (0.0 - 2.0 %) 0.3 Absolute Granulocytes (1.4 - 6.5 /CUMM) 10.1 H Absolute Lymphocytes (1.2 - 3.4 /CUMM) 1.0 L Absolute Monocytes (0.10 - 0.60 /CUMM) 0.4 Absolute Eosinophils (0.0 - 0.7 /CUMM) 0 Absolute Basophils (0.0 - 0.2 /CUMM) 0 03/25 1418 Urines Urinalysis LIGHT H Urine Color (YEL,AMB,STR) YEL Urine Clarity (CLEAR) CLEAR Urine pH (5.0 - 8.0) 6.0 Ur Specific [place] (1.001 - 1.035) 1.020 Urine Protein (NEG,<30 MG/DL) NEG Urine Ketones (NEG) NEG Urine Nitrite (NEG) NEG Urine Bilirubin (NEG) NEG Urine Urobilinogen (0.1 - 1.0 EU/dl) 0.2 Ur Leukocyte Esterase (NEG) TRACE H Ur Microscopic SEDIMENT EXAMINED Urine RBC (0 - 5 /HPF) 1-3 Urine WBC (0 - 2 /HPF) 3-5 H Ur Epithelial Cells (NONE,FEW) FEW Urine Bacteria (NEG/NONE) FEW H Urine Mucus (FEW,NONE) MOD H Urine Hemoglobin (NEG) NEG Urine Glucose (N MG/DL) NEG Imaging/Other Studies: 03/25/18: EKG- SB @ 52, nl axis, nl in, NSST. 03/25/18: CT ABD & PELVIS W IV CONTRAST (*personally reviewed by myself with Dr. Marium Craft, of [facility])- Findings consistent with long segment colitis involving the proximal sigmoid colon with *possible small intramural abscesses, & adjacent inflammatory change. Relative sparing of the distal sigmoid and rectum. No obstruction, free air, or ascites, aside from trace amount of free fluid in the pelvis. Bibasilar atelectasis. Normal liver. Post CCKY with mild postop ductal dilatation. Normal pancreas. Splenic cysts. No hydronephrosis. Innumerable parapelvic cysts. 4 mm nonobstructing left renal stone. Post TAHBSO. (*Upon my review with Dr. Craft, of [facility], the questionable intramural abscess was soft at best. Perhaps there was a 1 ml pocket in the wall of the left colon, otherwise negative. *Certainly, there was nothing amenable to percutaneous drainage, nor was there any diverticulitis). Assessment/Plan Assessment/Recommendations: 77 y/o female, non-HTN, non-DM, with history of intermittent left-sided focal segmental colitis, history of colon tubular adenoma, HH, OA, RA on MTX 10 mg/ week on Fridays, hypoT4, recurrent UTI, renal stones (? type), post ESWL, APPY, CCKY, TAHBSO (fibroids), T&A, & benign breast bxs. There is no history of documented IBD. 05/21/08: Colonoscopy per Dr. Mayco Parra-*ischemic colitis at 40 cm. 07/17/16: Colonoscopy to per Dr. Mayco Parra for left-sided colitis on CT- * subtle fibrosis from 40-45 cm, with biopsies unremarkable, plus removal of 2 diminutive right colon benign tubular adenomas. The patient had multiple allergies, including NSAIDs, ASA, Sulfa, & PCN, but she had tolerated cephalosporins in the past. The patient claimed she was admitted to [facility] in 01/2017 after a fall, and was then admitted to [facility] in 02/2017 for UTI. She subsequently had ESWL of left-sided nephrolithiasis in 03/2017. The patient presented to the [facility] 03/25/18, arriving 12:59 PM, complaining of bilateral lower abdominal pain, starting at 11:30 AM the day of admission, similar to her previous episodes of colitis. Upon arrival, BP 150/37, P 53, RR 15, T 96.6, O2 sat RA 98%. She had one episode of nonbloody diarrhea, and nausea , without any vomiting. She denied any fever, but had subjective chills. Her appetite was diminished. The lower abdominal pain was described as crampy and gassy, maximum "8 out of 10", perhaps slightly more on the RLQ than the LLQ. She felt lightheaded, but there was no CP, SOB, palpitations, or syncope. She felt like she had to go the bathroom at home, but could not defecate. Upon arriving in the ER, she had one episode of large loose stool, passing increased flatus. After this, her pain went down to a "4 out of 10". She had her regular breakfast of cereal with Lactaid milk and 2 waffles earlier this morning. She denied taking any NSAIDS (which she was allergic to). She denied any sick contacts, rule out food ingestion, point source, recent travel, or recent antibiotics. She denied any symptoms of UTI. She denied any gross feces in the urine or pneumaturia. She had no BAG PRINTER symptoms. She denied any vaginal spotting or discharge. She denied any weight loss. She denied any rashes. She had chronic mild arthralgias from her OA and RA. There was no FHx of GI Ca, IBD, additional GI disease, or inherited liver disease. She denied any cigarettes, EtOH, or illicit drugs. The patient was given IV fluids. She was NPO. She was empirically rxd Ceftriaxone 1g IV daily & Flagyl 500 mg IV Q8h, & Tylenol as needed. She had started to feel a little better. 07/28/16: stool Ag H. pylori- neg. 10/05/17: nl IgA 128, tTG Ab- neg, DGP Ab- neg. 10/08/17: lactoferin- neg. 03/25/18: WBC 11.6 (87% gran/10 gran Ab), H/H 15.2/45.5, MCV 87.4, RDW 14.0, PLT 283, glu 115, BUN/Cr 16/0.8, GFR > 60, Na 138, K 3.9, HCO3 26, AG 9, lipase 171, Ca 9.8, albumin 4.6, globulin 2.7, TBil 0.5, alk phos 91, AST 26, ALT 24, troponin < 0.01. 03/25/18: U/A- clear, yellow, 1.020, 6.0, 1-3 RBC, 3-5 WBC, few bact, neg nitrite, tr esterase. 03/25/18: BC x 2- pending. 03/25/18: EKG- SB @ 52, nl axis, nl in, NSST. 03/25/18: CT ABD & PELVIS W IV CONTRAST (*personally reviewed by myself with Dr. Marium Craft, of [facility])- Findings consistent with long segment colitis involving the proximal sigmoid colon with *possible small intramural abscesses, & adjacent inflammatory change. Relative sparing of the distal sigmoid and rectum. No obstruction, free air, or ascites, aside from trace amount of free fluid in the pelvis. Bibasilar atelectasis. Normal liver. Post CCKY with mild postop ductal dilatation. Normal pancreas. Splenic cysts. No hydronephrosis. Innumerable parapelvic cysts. 4 mm nonobstructing left renal stone. Post TAHBSO. (*Upon my review with Dr. Craft, of [facility], the questionable intramural abscess was soft at best. Perhaps there was a 1 ml pocket in the wall of the left colon, otherwise negative. *Certainly, there was nothing amenable to percutaneous drainage, nor was there any diverticulitis). *As per my discussion with Dr. Craft, assuming the patient had a benign abdominal exam, the feeling was that she colud get a dose of IV antibiotics in the ER and probably go home on oral antibiotics. By the time this was conveyed to the ER, the patient had already been admitted to the hospitalist service, as the ER felt there were some abdominal findings to warrant admission. *As of 03/25/18, the recurrent focal segmental colitis in the sigmoid colon was noted. Remote 05/21/08: biopsies in this region showed ischemic colitis. 07/17/16: Last colonoscopy to terminal ileum- subtle fibrosis from 40-45 cm with biopsies unremarkable, post removal of 2 diminutive right colon benign tubular adenomas. The findings of the intramural colonic wall abscess on admission CT were minimal , per my review with radiology. At best, it was 1 mL. Certainly, there was no drainable abscess, nor any free air. The patient was somewhat immunocompromised on MTX. She had no peritoneal signs. Diarrhea was minimal x 1. Stools were OB negative. *Most likely, the above was ischemic in nature. Rule out vasculitic. Infectious etiology seemed less likely by history, as did IBD. Rule out C. diff. Doubt neoplasm. *SUGGEST- NPO for now. IVF. IV Ceftriaxone 1g daily & IV Flagyl 500 mg Q8h, for now (PCN allergic, tolerates cephalosporins). Serial abdominal exams. Check stool for C&S , Shiga toxin, C. difficile, Giardia Ag, Cryptosporidium Ag, Vibrio, Yersinia, & lactoferrin. Await BC x 2. Will defer checking ESR, CRP, CINTIA for now (? if false positive from RA). Zofran as needed. Analgesics as needed. Avoid NSAIDs. I expect the patient to improve fairly rapidly. Consider advancing to clears po tomorrow, with eventual goal a low residue diet. Assuming the patient continues to improve, eventual conversion to oral antibiotics (i.e.- Cipro/Flagyl). Eventual follow-up outpt colonoscopy by Dr. Mayco Parra in 6-8 weeks, to clear the colonic mucosa, with consideration for repeat CTE/CTA then. At present, no clinical indication for surgical consult. DVT prophylaxis. Mobilize patient as tolerated. Further GI recommendations to follow, depending on clinical course. Problem List: 1. Colitis 2. Abdominal pain 3. Nausea 4. Diarrhea 5. Leukocytosis 6. History of adenomatous polyp of colon Copies To: Nina EATON,Roberto; Alec EATON,Giancarlo Michele; Medardo EATON,Ap Smith; Yasmeen EATON,Alejandro Tyler; Nikolai EATON,Warren; Fidel EATON,Patrick Georges. Consult Acknowledgment - Thank you for your consult request.
[2018-03-26 06:26] VITALS: BP 112/54
--- NOTE | 2018-03-26 06:34 | PN- Housestaff ---
Benjamin Bonner 03/26/18 0634: Subjective Follow-up For: Proximal sigmoid colitis Hypertension History of tubular adenoma Subjective: I visited the patient this morning she was lying back in her bed. She is alert oriented 3, in no acute distress. She mentions that the abdominal pain is improved since admission. She denies diarrhea. She had one bowel movement yesterday afternoon which was loose but not diarrhea. She believes she can tolerate p.o. Review of Systems Constitutional: Reports: see HPI. Objective Last 24 Hrs of Vital Signs/I&O Vital Signs Date Time Temp Pulse Resp B/P B/P Pulse O2 O2 Flow FiO2 Mean Ox Delivery Rate 03/26 1600 97.6 62 18 110/64 98 03/26 0800 Room Air 03/26 0626 98.2 64 18 112/54 96 Room Air 03/25 2249 98.9 70 18 132/68 96 Room Air 03/25 2115 99.0 74 14 146/67 97 Room Air Intake & Output 03/26 1600 03/26 0800 03/26 0000 Intake Total 1560 1150 275 Output Total Balance 1560 1150 275 Intake, IV 1200 1150 275 Intake, Oral 360 Number 2 Bowel Movements Patient 107 lb 113 lb Weight Weight Bed scale Measurement Method Physical Exam General Appearance: Alert, Oriented X3, Cooperative, No Acute Distress Skin: No Rashes Skin Temp/Moisture Exam: Warm/Dry Cardiovascular: Regular Rate, Normal S1, Normal S2 Lungs: Clear to Auscultation, Normal Air Movement Abdomen: Normal Bowel Sounds, Soft Assessment/Plan Assessment: This is an immunocompromised (on Methotrexate) 77yo F w/ PMH as above presented to ER with sudden onset of Ab pain w/ diarrhea x 1 & Nausea, nonbloody nonbilious, with postive leukocytosis and CT findings of right sided colitis, likely infectious pending rule out other sources. Has had several bouts in the past of colitis. Patient's current RA MTX meds leave patient in relatively immunosuppressed state however her WBC was reactive to infection at this point. No measured fevers at home. Long segment colitis: Plan: Ceftriaxone 1 g IV daily, metronidazole 500 mg IV every 8 hours. She was n.p.o. till this morning with IV hydration. We have started her on clear liquids to see if she tolerates diet. Hypothyroidism: Plan: Levothyroxine 75 mcg daily Problem List: 1. Colitis 2. Abdominal pain 3. Leukocytosis 4. History of adenomatous polyp of colon Pain Ratin Pain Location: Abdomen Pain Goal: Pain 4 or less Pain Plan: IV antibiotics Titration N.p.o. then advance diet Tomorrow's Labs & Rationales: Not applicable Deion Miner MD 03/26/182049: Attending MD Review Statement Attending Statement Attending MD Statement: examined this patient, discuss w/resident/PA/NETTING INSPECTOR, agreed w/resident/PA/NETTING INSPECTOR, reviewed EMR data (avail), discussed with nursing, discussed with case mgmt, amended to note Attending Assessment/Plan: The patient was seen and discussed with house staff. Agree with the plan of care as outlined. Appreciate GI input. Will continue Ceftriaxone and Flagyl. Note patient with h/o RA on MTX and is immunocompromised.
[2018-03-26 10:58] LABS: ABSOLUTE BASOPHIL COUNT 0 /CUMM (0.0-0.2); ABSOLUTE GRANULOCYTE CT 4.1 /CUMM (1.4-6.5); ABSOLUTE LYMPH COUNT 1.3 /CUMM (1.2-3.4); WHITE BLOOD CELL COUNT 5.9 /CUMM (4.8-10.8)
[2018-03-26 11:05] LABS: ABSOLUTE EOSINOPHIL COUNT 0 /CUMM (0.0-0.7); ABSOLUTE MONOCYTE COUNT 0.5 /CUMM (0.10-0.60); BASOPHIL % 0.1 % (0.0-2.0); EOSINOPHIL % 0.8 % (0-5); MEAN CORPUSCULAR HGB 29.3 PG (27.0-31.0); MEAN CORPUSCULAR HGB CONC 33.4 G/DL (33.0-37.0); MEAN CORPUSCULAR VOLUME 87.6 FL (81.0-99.0); MEAN PLATELET VOLUME 8.3 FL (7.4-10.4); PLATELET COUNT 229 /CUMM (130-400); RBC DISTRIBUTION WIDTH 14.2 % (11.5-14.5)
[2018-03-26 11:09] LABS: HEMATOCRIT 37.7 % (37-47)
[2018-03-26 16:00] VITALS: BP 110/64
--- NOTE | 2018-03-26 21:04 | PN- Gastroenterology ---
Assessment/Plan GI Assessment/Recommendations: 77 y/o female, non-HTN, non-DM, with history of intermittent left-sided focal segmental colitis, history of colon tubular adenoma, HH, OA, RA on MTX 10 mg/ week on Fridays, hypoT4, recurrent UTI, renal stones (? type), post ESWL, APPY, CCKY, TAHBSO (fibroids), T&A, & benign breast bxs. There is no history of documented IBD. 05/21/08: Colonoscopy per Dr. Mayco Parra-*ischemic colitis at 40 cm. 07/17/16: Colonoscopy to [facility] per Dr. Mayco Parra for left-sided colitis on CT- * subtle fibrosis from 40-45 cm, with biopsies unremarkable, plus removal of 2 diminutive right colon benign tubular adenomas. The patient had multiple allergies, including NSAIDs, ASA, Sulfa, & PCN, but she had tolerated cephalosporins in the past. The patient claimed she was admitted to [place] in 01/2017 after a fall, and was then admitted to [place] in 02/2017 for UTI. She subsequently had ESWL of left-sided nephrolithiasis in 03/2017. The patient presented to the [place] ER 03/25/18, arriving 12:59 PM, complaining of bilateral lower abdominal pain, starting at 11:30 AM the day of admission, similar to her previous episodes of colitis. Upon arrival, BP 150/37, P 53, RR 15, T 96.6, O2 sat RA 98%. She had one episode of nonbloody diarrhea, and nausea , without any vomiting. She denied any fever, but had subjective chills. Her appetite was diminished. The lower abdominal pain was described as crampy and gassy, maximum "8 out of 10", perhaps slightly more on the RLQ than the LLQ. She felt lightheaded, but there was no CP, SOB, palpitations, or syncope. She felt like she had to go the bathroom at home, but could not defecate. Upon arriving in the ER, she had one episode of large loose stool, passing increased flatus. After this, her pain went down to a "4 out of 10". She had her regular breakfast of cereal with Lactaid milk and 2 waffles earlier this morning. She denied taking any NSAIDS (which she was allergic to). She denied any sick contacts, rule out food ingestion, point source, recent travel, or recent antibiotics. She denied any symptoms of UTI. She denied any gross feces in the urine or pneumaturia. She had no DIRECTOR OF IN SERVICE EDUCATION symptoms. She denied any vaginal spotting or discharge. She denied any weight loss. She denied any rashes. She had chronic mild arthralgias from her OA and RA. There was no FHx of GI Ca, IBD, additional GI disease, or inherited liver disease. She denied any cigarettes, EtOH, or illicit drugs. The patient was given IV fluids. She was NPO. She was empirically rxd Ceftriaxone 1g IV daily & Flagyl 500 mg IV Q8h, & Tylenol as needed. She had started to feel a little better. 07/28/16: stool Ag H. pylori- neg. 10/05/17: nl IgA 128, tTG Ab- neg, DGP Ab- neg. 10/08/17: lactoferin- neg. 03/25/18: WBC 11.6 (87% gran/10 gran Ab), H/H 15.2/45.5, MCV 87.4, RDW 14.0, PLT 283, glu 115, BUN/Cr 16/0.8, GFR > 60, Na 138, K 3.9, HCO3 26, AG 9, lipase 171, Ca 9.8, albumin 4.6, globulin 2.7, TBil 0.5, alk phos 91, AST 26, ALT 24, troponin < 0.01. 03/25/18: U/A- clear, yellow, 1.020, 6.0, 1-3 RBC, 3-5 WBC, few bact, neg nitrite, tr esterase. 03/25/18: BC x 2- pending. 03/25/18: EKG- SB @ 52, nl axis, nl in, NSST. 03/25/18: CT ABD & PELVIS W IV CONTRAST (*personally reviewed by myself with Dr. Marium Craft, of [facility])- Findings consistent with long segment colitis involving the proximal sigmoid colon with *possible small intramural abscesses, & adjacent inflammatory change. Relative sparing of the distal sigmoid and rectum. No obstruction, free air, or ascites, aside from trace amount of free fluid in the pelvis. Bibasilar atelectasis. Normal liver. Post CCKY with mild postop ductal dilatation. Normal pancreas. Splenic cysts. No hydronephrosis. Innumerable parapelvic cysts. 4 mm nonobstructing left renal stone. Post TAHBSO. (*Upon my review with Dr. Craft, of [facility], the questionable intramural abscess was soft at best. Perhaps there was a 1 ml pocket in the wall of the left colon, otherwise negative. *Certainly, there was nothing amenable to percutaneous drainage, nor was there any diverticulitis). *As per my discussion with Dr. Craft, assuming the patient had a benign abdominal exam, the feeling was that she colud get a dose of IV antibiotics in the ER and probably go home on oral antibiotics. By the time this was conveyed to the ER, the patient had already been admitted to the hospitalist service, as the ER felt there were some abdominal findings to warrant admission. *As of 03/25/18, the recurrent focal segmental colitis in the sigmoid colon was noted. Remote 05/21/08: biopsies in this region showed ischemic colitis. 07/17/16: Last colonoscopy to terminal ileum- subtle fibrosis from 40-45 cm with biopsies unremarkable, post removal of 2 diminutive right colon benign tubular adenomas. The findings of the intramural colonic wall abscess on admission CT were minimal , per my review with radiology. At best, it was 1 mL. Certainly, there was no drainable abscess, nor any free air. The patient was somewhat immunocompromised on MTX. She had no peritoneal signs. Diarrhea was minimal x 1. Stools were OB negative. *Most likely, the above was ischemic in nature. Rule out vasculitic. Infectious etiology seemed less likely by history, as did IBD. Rule out C. diff. Doubt neoplasm. 03/25/18: BC X 2- negative. 03/26/18: C. difficile toxin A&B- neg, Giardia Ag- neg, Crypto Ag- neg 03/26/18: *stool C&S, Yersinia, Vibrio, Shiga toxin, Lactoferrin- all pending. 03/26/18: 0810- WBC 5.9, H/H 12.6/37.7, PLT 229, BUN/Cr 12/0.7, GFR > 60, Na 140 , K 3.7, HCO3 22, AG 7. *As of 03/26/18, the patient's GI symptoms were improving. She remained hemodynamically stable & afebrile (Tm 99), with O2 sat RA 98%. She tolerated clears po, and was ambulating. Her only complaint was increased flatus. She denied any diarrhea, constipation, obstipation, nausea, or vomiting. She had a solid BM. Her lower abdominal cramps were much better. There was no overt GI bleeding. She remained on IV Ceftriaxone & Flagyl. Simethicone was added. *SUGGEST- *If stable advance clears po to low residue diet in a.m. IV Ceftriaxone 1g daily & IV Flagyl 500 mg Q8h, for now (PCN allergic, tolerates cephalosporins) & would switch these to po Cipro 500 mg po BID & Flagyl 500 mg po TID on 03/27/18 x 1 week. Serial abdominal exams. Await stool workup. Await BC x 2. Will defer checking ESR, CRP, CINTIA for now (? if false positive from RA). Zofran as needed. Analgesics as needed. Avoid NSAIDs. I expect the patient to continue to improve fairly rapidly. Consider D/C to home tomorrow, on 03/27/18. Eventual follow-up outpt colonoscopy by Dr. Mayco Parra in 6-8 weeks, to clear the colonic mucosa, with consideration for repeat CTE/CTA then. At present, no clinical indication for surgical consult. DVT prophylaxis. Mobilize patient as tolerated. Further GI recommendations to follow, depending on clinical course. Problem List: 1. Colitis 2. Abdominal pain 3. Nausea 4. Diarrhea 5. Leukocytosis 6. History of adenomatous polyp of colon Subjective Subjective: 03/25/18: BC X 2- negative. 03/26/18: C. difficile toxin A&B- neg, Giardia Ag- neg, Crypto Ag- neg 03/26/18: *stool C&S, Yersinia, Vibrio, Shiga toxin, Lactoferrin- all pending. 03/26/18: 0810- WBC 5.9, H/H 12.6/37.7, PLT 229, BUN/Cr 12/0.7, GFR > 60, Na 140 , K 3.7, HCO3 22, AG 7. *As of 03/26/18, the patient's GI symptoms were improving. She remained hemodynamically stable & afebrile (Tm 99), with O2 sat RA 98%. She tolerated clears po, and was ambulating. Her only complaint was increased flatus. She denied any diarrhea, constipation, obstipation, nausea, or vomiting. She had a solid BM. Her lower abdominal cramps were much better. There was no overt GI bleeding. She remained on IV Ceftriaxone & Flagyl. Simethicone was added. Review of Systems: Full 14 point review of systems otherwise noncontributory, and as above. Review of Systems Constitutional: Reports: chills (resolved), malaise (improving), mild flatus. Denies: diaphoresis, fever, weakness, unexplained weight loss. EENTM: Denies: blurred vision, double vision, visual changes, eye pain, eye drainage, eye tearing, icterus, ear discharge, ear pain, ear redness, hearing changes, nasal congestion, epistaxis, nasal pain, throat pain, throat swelling, mouth pain, tooth pain. Cardiovascular: Denies: chest pain, edema, orthopena, palpitations, peripheral edema, syncope. Respiratory: Denies: cough, hemoptysis, orthopnea, short of breath, sputum production, stridor, wheezing. GI: Reports: abdominal pain (B/L lower quadrant-> improved), diarrhea (resolved), nausea (resolved). Denies: bloating, constipation, distention, bowel incontinence, melena, bloody stool, changes in stool, vomiting, steatorrhea. Genitourinary: Denies: discharge, dysuria, frequency, hematuria, hesitation, nocturia, pain, urgency. Musculoskeletal: Denies: back pain, gout, joint pain, joint swelling, muscle pain, muscle stiffness, neck pain. Skin: Denies: cysts, change in skin color, change in hair/nails, dryness, erythema, jaundice, lesions, lymphangitis, lumps, moles, rash. Neurological/Psychological: Denies: anxiety, ataxia, cognitive dysfunction, confusion, depressed, dementia, emotional problems, headache, numbness, paresthesia, pre-existing deficit, petit mal seizures, tingling, tremors, tonic-clonic seizures, unable to move lower ext , unable to move upper ext, weakness, other. Hematologic/Endocrine: Denies: bruising, bleeding, polyuria, polydipsia. Immunologic/Allergic: Denies: splenectomy, HIV/AIDS, lymphadenopathy. All Other Systems: Reviewed and Negative Objective Vital Signs and I&Os Vital Signs Date Time Temp Pulse Resp B/P B/P Pulse O2 O2 Flow FiO2 Mean Ox Delivery Rate 03/26 1600 97.6 62 18 110/64 98 03/26 0800 Room Air 03/26 0626 98.2 64 18 112/54 96 Room Air 03/25 2249 98.9 70 18 132/68 96 Room Air Intake & Output 03/26 1600 03/26 0400 03/25 0400 03/24 1600 03/24 0400 Intake Total 2710 275 0 Output Total Balance 2710 275 0 Intake, IV 2350 275 Intake, Oral 360 0 Number 2 Bowel Movements Patient 107 lb 113 lb 112 lb Weight Weight Bed scale Reported by Patient Measurement Method Physical Exam: Well-developed, well-nourished female, nontoxic appearing, in no apparent distress. Sclera anicteric. Conjunctiva pink. Oropharynx clear. No oral thrush. No aphthous ulcers. There is no adenopathy, thyromegaly, or JVD. No peripheral stigmata of inflammatory bowel disease or chronic liver disease on exam. No spiders on the anterior chest wall. Breast & pelvic exams: API. No CVA tenderness. No spine tenderness. Lungs: clear to A&P. No wheezing, rales, or rhonchi. Heart exam: regular rate rhythm, S1 and S2, without any murmur. Abdominal exam: normal bowel sounds, soft belly, less distended, essentially nontender, without guarding or rebound. No mass. No organomegaly. No fluid shift. No pulsatile mass. Digital rectal exam (done by myself 03/25/18, with the assistance of the pt's RNZakiya): brown stool, OB-neg, without any mass, normal sphincter tone, nontender, no external hemorrhoid, no fissure, no perianal disease. Extremities without C, C, or E. No palpable cords. No rash. Mild DJD/RA. No active crepitus. No palmar erythema. No Dupuytren's contractures. Distal pulses 2+ bilaterally. DTRs 2+ bilaterally. Right handed / Motor 5/5 B/L. Alert and oriented x 3. No tremor. No asterixis. Current Medications: Current Medications Sig/Ofelia Start time Last Medication Dose Route Stop Time Status Admin Acetaminophen 650 MG Q6P PRN 03/25 2030 AC 03/25 PO 2217 Ceftriaxone Sodium 1,000 MG 1900 03/26 1900 AC 03/26 IV 1828 Enoxaparin Sodium 40 MG DAILY 03/26 0900 CAN SC Folic Acid 1 MG DAILY 03/26 0900 AC 03/26 PO 0856 Levothyroxine Sodium 0.075 MG DAILY AC 03/26 0700 AC 03/26 PO 0550 Metronidazole 500 MG Q8H 03/26 0300 03/26 N/A 1 UNIT IV 1828 Patient Medication 1 ED ONE ONE 03/26 0900 UT 03/26 Teaching ED 03/26 0901 1828 Simethicone 80 MG Q6P PRN 03/26 0400 AC 03/26 PO 0550 Sodium Chloride 1,000 ML .[id number] 03/25 2200 DC 03/26 IV 03/26 1119 0550 Results Pertinent Lab Results: Laboratory Tests 03/26 03/26 03/25 1015 0810 1935 Chemistry Sodium (137 - 145 mmol/L) 140 Potassium (3.5 - 5.1 mmol/L) 3.7 Chloride (98 - 107 mmol/L) 111 H Carbon Dioxide (22 - 30 mmol/L) 22 Anion Gap (5 - 16) 7 BUN (7 - 17 mg/dL) 12 Creatinine (0.5 - 1.0 mg/dL) 0.7 Estimated GFR (>60 ml/min) > 60 BUN/Creatinine Ratio (7 - 25 %) 17.1 Lactic Acid Cancelled Hematology CBC w Diff NO MAN DIFF REQ WBC (4.8 - 10.8 /CUMM) 5.9 RBC (4.20 - 5.40 /CUMM) 4.30 Hgb (12.0 - 16.0 G/DL) 12.6 Hct (37 - 47 %) 37.7 MCV (81.0 - 99.0 FL) 87.6 MCH (27.0 - 31.0 PG) 29.3 MCHC (33.0 - 37.0 G/DL) 33.4 RDW (11.5 - 14.5 %) 14.2 Plt Count (130 - 400 /CUMM) 229 MPV (7.4 - 10.4 FL) 8.3 Gran % (42.2 - 75.2 %) 69.0 Lymphocytes % (20.5 - 51.1 %) 21.8 Monocytes % (1.7 - 9.3 %) 8.3 Eosinophils % (0 - 5 %) 0.8 Basophils % (0.0 - 2.0 %) 0.1 Absolute Granulocytes (1.4 - 6.5 /CUMM) 4.1 Absolute Lymphocytes (1.2 - 3.4 /CUMM) 1.3 Absolute Monocytes (0.10 - 0.60 /CUMM) 0.5 Absolute Eosinophils (0.0 - 0.7 /CUMM) 0 Absolute Basophils (0.0 - 0.2 /CUMM) 0 Other Body Source Stool Lactoferrin Pending 03/25 03/25 1935 1501 Chemistry Sodium (137 - 145 mmol/L) 138 Potassium (3.5 - 5.1 mmol/L) 3.9 Chloride (98 - 107 mmol/L) 104 Carbon Dioxide (22 - 30 mmol/L) 26 Anion Gap (5 - 16) 9 BUN (7 - 17 mg/dL) 16 Creatinine (0.5 - 1.0 mg/dL) 0.8 Estimated GFR (>60 ml/min) > 60 BUN/Creatinine Ratio (7 - 25 %) 20.0 Glucose (65 - 99 mg/dL) 115 H Lactic Acid (0.7 - 2.1 mmol/L) 1.1 Calcium (8.4 - 10.2 mg/dL) 9.8 Total Bilirubin (0.2 - 1.3 mg/dL) 0.5 AST (14 - 36 U/L) 26 ALT (9 - 52 U/L) 24 Alkaline Phosphatase (<127 U/L) 91 Troponin I (< 0.11 ng/ml) < 0.01 Total Protein (6.3 - 8.2 g/dL) 7.3 Albumin (3.5 - 5.0 g/dL) 4.6 Globulin (1.9 - 4.2 gm/dL) 2.7 Albumin/Globulin Ratio (1.1 - 2.2 %) 1.7 Lipase (23 - 300 U/L) 171 Hematology CBC w Diff NO MAN DIFF REQ WBC (4.8 - 10.8 /CUMM) 11.6 H RBC (4.20 - 5.40 /CUMM) 5.21 Hgb (12.0 - 16.0 G/DL) 15.2 Hct (37 - 47 %) 45.5 MCV (81.0 - 99.0 FL) 87.4 MCH (27.0 - 31.0 PG) 29.2 MCHC (33.0 - 37.0 G/DL) 33.4 RDW (11.5 - 14.5 %) 14.0 Plt Count (130 - 400 /CUMM) 283 MPV (7.4 - 10.4 FL) 7.5 Gran % (42.2 - 75.2 %) 87.3 H Lymphocytes % (20.5 - 51.1 %) 8.7 L Monocytes % (1.7 - 9.3 %) 3.3 Eosinophils % (0 - 5 %) 0.4 Basophils % (0.0 - 2.0 %) 0.3 Absolute Granulocytes (1.4 - 6.5 /CUMM) 10.1 H Absolute Lymphocytes (1.2 - 3.4 /CUMM) 1.0 L Absolute Monocytes (0.10 - 0.60 /CUMM) 0.4 Absolute Eosinophils (0.0 - 0.7 /CUMM) 0 Absolute Basophils (0.0 - 0.2 /CUMM) 0 03/25 1418 Urines Urinalysis LIGHT H Urine Color (YEL,AMB,STR) YEL Urine Clarity (CLEAR) CLEAR Urine pH (5.0 - 8.0) 6.0 Ur Specific [place] (1.001 - 1.035) 1.020 Urine Protein (NEG,<30 MG/DL) NEG Urine Ketones (NEG) NEG Urine Nitrite (NEG) NEG Urine Bilirubin (NEG) NEG Urine Urobilinogen (0.1 - 1.0 EU/dl) 0.2 Ur Leukocyte Esterase (NEG) TRACE H Ur Microscopic SEDIMENT EXAMINED Urine RBC (0 - 5 /HPF) 1-3 Urine WBC (0 - 2 /HPF) 3-5 H Ur Epithelial Cells (NONE,FEW) FEW Urine Bacteria (NEG/NONE) FEW H Urine Mucus (FEW,NONE) MOD H Urine Hemoglobin (NEG) NEG Urine Glucose (N MG/DL) NEG Imaging/Other Studies: 03/25/18: EKG- SB @ 52, nl axis, nl in, NSST. 03/25/18: CT ABD & PELVIS W IV CONTRAST (*personally reviewed by myself with Dr. Marium Craft, of [facility])- Findings consistent with long segment colitis involving the proximal sigmoid colon with *possible small intramural abscesses, & adjacent inflammatory change. Relative sparing of the distal sigmoid and rectum. No obstruction, free air, or ascites, aside from trace amount of free fluid in the pelvis. Bibasilar atelectasis. Normal liver. Post CCKY with mild postop ductal dilatation. Normal pancreas. Splenic cysts. No hydronephrosis. Innumerable parapelvic cysts. 4 mm nonobstructing left renal stone. Post TAHBSO. (*Upon my review with Dr. Craft, of [facility], the questionable intramural abscess was soft at best. Perhaps there was a 1 ml pocket in the wall of the left colon, otherwise negative. *Certainly, there was nothing amenable to percutaneous drainage, nor was there any diverticulitis).
[2018-03-26 22:08] VITALS: BP 116/70
[2018-03-27 06:13] VITALS: BP 134/66
--- NOTE | 2018-03-27 06:38 | PN- Housestaff ---
Benjamin Bonner 03/27/18 0638: Subjective Follow-up For: Proximal sigmoid colitis Hypertension History of tubular adenoma Subjective: I visited the patient is moaning. she was sitting in her chair next to the bed, in no acute distress, alert and oriented 3. She states that the nausea vomiting, and abdominal pain has improved a lot comparing last night. She had a good sleep overnight. No major complaints reported from the nurse overnight. Review of Systems Constitutional: Reports: see HPI. Objective Last 24 Hrs of Vital Signs/I&O Vital Signs Date Time Temp Pulse Resp B/P B/P Pulse O2 O2 Flow FiO2 Mean Ox Delivery Rate 03/27 1439 97.4 65 20 110/70 95 Room Air 03/27 0613 97.8 52 20 134/66 92 Room Air 03/26 2208 98.4 60 18 116/70 97 Room Air Intake & Output 03/27 1600 03/27 0800 03/27 0000 Intake Total 650 170 600 Output Total Balance 650 170 600 Intake, IV 100 120 100 Intake, Oral 550 50 500 Number 0 Bowel Movements Physical Exam General Appearance: Alert, Oriented X3, Cooperative, No Acute Distress Skin: No Rashes Skin Temp/Moisture Exam: Warm/Dry Sepsis Skin Exam (color): Normal for Ethnicity HEENT: Atraumatic Neck: Supple, No JVD Cardiovascular: Regular Rate, Normal S1, Normal S2 Lungs: Clear to Auscultation, Normal Air Movement Abdomen: Normal Bowel Sounds, Soft Extremities: No Clubbing, No Cyanosis, No Edema, Normal Pulses, No Tenderness/ Swelling Assessment/Plan Assessment: This is an immunocompromised (on Methotrexate) 77yo F w/ PMH as above presented to ER with sudden onset of Ab pain w/ diarrhea x 1 & Nausea, nonbloody nonbilious, with postive leukocytosis and CT findings of right sided colitis, likely infectious pending rule out other sources. Has had several bouts in the past of colitis. Patient's current RA MTX meds leave patient in relatively immunosuppressed state however her WBC was reactive to infection at this point. No measured fevers at home. The patient feels much better clinically, no nausea, no vomiting, tolerated regular diet. Based on GI consult and clinical condition of the patient, she is discharged. Long segment colitis: Plan: Ceftriaxone 1 g IV daily, metronidazole 500 mg IV every 8 hours. She was n.p.o. primarily with IV hydration. We have started her on clear liquids, she tolerated and her diet was advanced to regular diet, medications changed to p.o. ciprofloxacin 500 every 12 hours, metronidazole 500 every 8 hours. Hypothyroidism: Plan: Levothyroxine 75 mcg daily Problem List: 1. Colitis 2. History of adenomatous polyp of colon 3. Nausea 4. Abdominal pain Pain Ratin Pain Location: Abdomen Pain Goal: Decrease Pain Plan: IV antibiotics Tomorrow's Labs & Rationales: Not applicable Deion Miner MD 03/27/18 1438: Attending MD Review Statement Attending Statement Attending MD Statement: examined this patient, discuss w/resident/PA/CLINICAL RESOURCE MANAGER, agreed w/resident/PA/CLINICAL RESOURCE MANAGER, reviewed EMR data (avail), discussed with nursing, discussed with case mgmt, reviewed images, amended to note Attending Assessment/Plan: The patient has improved significantly on Antibiotics. Will discharge to home today if tolerates regular diet. Will send home on Cipro/Flagyl. GI input appreciated.
--- NOTE | 2018-03-27 08:26 | Patient Discharge Instructions ---
Discharge Instructions General Discharge Information You were seen/treated for: Proximal sigmoid colitis Hypertension History of tubular adenoma Hypothyroidism Osteoarthritis and RA on MTX You had these procedures: Abdominal CT scan Watch for these problems: Worsening pain worsening nausea or vomitting fever bloody stool Special Instructions: please follow up with your PCP Please follow up with your GI Diet Continue normal diet: Yes Activity Full Activity/No Limits: No Activity Self Limited: Yes Acute Coronary Syndrome Inclusion Criteria At DC or during hospital stay patient has or had the following: ACS DIAGNOSIS No Discharge Core Measures Meds if any: Prescribed or Continued at Discharge Meds if any: NOT Prescribed or Continued at Discharge Congestive Heart Failure Inclusion Criteria At DC or during hospital stay patient has or had the following: CHF DIAGNOSIS No Discharge Core Measures Meds if any: Prescribed or Continued at Discharge Meds if any: NOT Prescribed or Continued at Discharge Cerebrovascular accident Inclusion Criteria At DC or during hospital stay patient has or had the following: CVA/TIA Diagnosis No Discharge Core Measures Meds if any: Prescribed or Continued at Discharge Meds if any: NOT Prescribed or Continued at Discharge Venous thromboembolism Inclusion Criteria VTE Diagnosis No VTE Type NONE VTE Confirmed by (Test) NONE Discharge Core Measures - Per Current guidelines, there needs to be overlap - treatment for the first 5 days of Warfarin therapy. - If discharged on Warfarin prior to 5 days of - overlap therapy, the patient will need to be - assessed for post discharge needs including - *Post discharge parental anticoagulation - *Warfarin and/or parental anticoagulation education - *Follow up date to check INR post discharge At least 5 days overlap therapy as Inpatient No Meds if any: Prescribed or Continued at Discharge Note: Overlap Therapy is Warfarin and Anticoagulant Meds if any: NOT Prescribed or Continued at Discharge fever bloody stool Special Instructions: please follow up with your PCP Please follow up with your GI Diet Continue normal diet: Yes Activity Full Activity/No Limits: No Activity Self Limited: Yes Acute Coronary Syndrome Inclusion Criteria At DC or during hospital stay patient has or had the following: ACS DIAGNOSIS No Discharge Core Measures Meds if any: Prescribed or Continued at Discharge Meds if any: NOT Prescribed or Continued at Discharge Congestive Heart Failure Inclusion Criteria At DC or during hospital stay patient has or had the following: CHF DIAGNOSIS No Discharge Core Measures Meds if any: Prescribed or Continued at Discharge Meds if any: NOT Prescribed or Continued at Discharge Cerebrovascular accident Inclusion Criteria At DC or during hospital stay patient has or had the following: CVA/TIA Diagnosis No Discharge Core Measures Meds if any: Prescribed or Continued at Discharge Meds if any: NOT Prescribed or Continued at Discharge Venous thromboembolism Inclusion Criteria VTE Diagnosis No VTE Type NONE VTE Confirmed by (Test) NONE Discharge Core Measures - Per Current guidelines, there needs to be overlap - treatment for the first 5 days of Warfarin therapy. - If discharged on Warfarin prior to 5 days of - overlap therapy, the patient will need to be - assessed for post discharge needs including - *Post discharge parental anticoagulation - *Warfarin and/or parental anticoagulation education - *Follow up date to check INR post discharge At least 5 days overlap therapy as Inpatient No Meds if any: Prescribed or Continued at Discharge Note: Overlap Therapy is Warfarin and Anticoagulant Meds if any: NOT Prescribed or Continued at Discharge
[2018-03-27] MEDS ORDERED: CIPROFLOXACIN500 M2 PO ×2 (11:58→14:46)
[2018-03-27] MEDS ORDERED: FLAGYL500 MG PO ×2 (11:58→14:46)
--- NOTE | 2018-03-27 14:23 | Discharge Summary ---
Visit Information Visit Dates Admission Date: 03/25/18 Discharge Date: 03/27/2018 Hospital Course Course Attending Physician: Deion Miner MD Primary Care Physician: Alec EATON,Giancarlo Michele Consulting Request: Consulting Specialty: Gastroenterology Consulting Physician: Diogo Cannon MD Reason for Consult: COLITIS Hospital Course: This is an immunocompromised (on Methotrexate) 77yo F w/ PMH as above presented to ER with sudden onset of Ab pain w/ diarrhea x 1 & Nausea, nonbloody nonbilious, with postive leukocytosis and CT findings of right sided colitis, likely infectious pending rule out other sources. Has had several bouts in the past of colitis. Patient's current RA MTX meds leave patient in relatively immunosuppressed state however her WBC was reactive to infection at this point. No measured fevers at home. The patient feels much better clinically, no nausea, no vomiting, tolerated regular diet. Based on GI consult and clinical condition of the patient, she is discharged. Long segment colitis: Plan: Ceftriaxone 1 g IV daily, metronidazole 500 mg IV every 8 hours. She was n.p.o. primarily with IV hydration. We have started her on clear liquids, she tolerated and her diet was advanced to regular diet, medications changed to p.o. ciprofloxacin 500 every 12 hours, metronidazole 500 every 8 hours. Hypothyroidism: Plan: Levothyroxine 75 mcg daily Rheumatoid arthritis: This condition is chronic and the patient is stable Plan: On MTX 10mg/wk on Fridays Allergies: Coded Allergies: NSAIDS (Non-Steroidal Anti-Inflamma (Severe, ANAPHYLAXIS 02/17/17) Sulfa (Sulfonamide Antibiotics) (Severe, ANAPHYLAXIS 02/17/17) aspirin (Severe, HIVES 03/17/17) naproxen (From ALEVE) (Severe, ANAPHYLAXIS 02/17/17) Penicillins (Intermediate, HIVES, COLITIS ATTACK 02/17/17) Significant Procedures: EXAM TYPE: CAT - CT ABD & PELVIS W IV CONTRAST EXAMINATION: CT ABDOMEN AND PELVIS WITH CONTRAST CLINICAL INFORMATION: Diffuse abdominal pain COMPARISON: CT 02/17/2017 TECHNIQUE: Multidetector volumetric imaging was performed of the abdomen and pelvis following IV administration of 95 mL of Optiray 320 intravenous contrast. Sagittal and coronal reformatted images were obtained on the technologist's workstation. DLP: 258 mGy-cm FINDINGS: LUNG BASES: Bibasilar atelectasis. No consolidation or effusion. LIVER, GALLBLADDER, AND BILIARY TREE: The liver is normal in size, shape, and attenuation. No focal hepatic lesion. Mild biliary ductal dilatation is present. Gallbladder surgically absent.. PANCREAS: Unremarkable. SPLEEN: The spleen enhances homogeneously. A hypodense subcentimeter lesion within the mid body of the spleen is consistent with cysts. ADRENAL GLANDS: Unremarkable. KIDNEYS AND URETERS: The kidneys enhance symmetrically. No convincing hydronephrosis. Innumerable parapelvic cysts are redemonstrated. A tiny punctate density in the superior pole of the left kidney measures 4 mm and is consistent with a nonfasting stone. BLADDER: Unremarkable. GASTROINTESTINAL TRACT: There is extensive submucosal edema involving a long segment of proximal sigmoid: With adjacent inflammatory change including marked prominence of the vasa recta. (Image 70, series 2 for example). There is a hypodense area within the wall of the proximal sigmoid: With mild rim enhancement measuring 1.3 x 1.2 cm (image 71, series 2). A similar finding is noted more superiorly within the proximal colon measuring 1.2 x 1.0 cm (image 67, series 2). There is relative sparing of the distal sigmoid colon and rectum. There are no dilated loops of small or large bowel. No intra-abdominal free air. There is a trace amount of free fluid within the pelvis. ABDOMINAL WALL: No significant hernia is appreciated. LYMPH NODES: Normal. VASCULAR: Unremarkable. PELVIC VISCERA: Uterus is surgically absent. No adnexal masses. OSSEOUS STRUCTURES: No acute findings. IMPRESSION: Findings consistent with long segment colitis involving the proximal sigmoid colon with possible small intramural abscesses. Pertinent Lab Results: WBC: 11.6 ---> 5.9 Cr: 0.7 Disposition Summary Disposition Principal Diagnosis: Long segment colitis Additional Diagnosis: Hypothyroidism Rheumatoid arthritis on methotrexate Osteoarthritis Discharge Disposition: home or self care Discharge Instructions General Discharge Information Code Status: Full Code Patient's Diet: Regular diet Patient's Activity: As tolerated Follow-Up Instructions/Appts: Please follow-up with your PCP Please follow-up with your GI doctor If you feel any fever, chills, nausea, vomiting, worsening of her abdominal pain , please call your PCP Please take ciprofloxacin 500 mg every 12 hour till the course is complete Please take metronidazole 500 mg every 8 hours till the course is complete Medications at Discharge Discharge Medications: Continue taking these medications: Multivitamin-Min/Iron/FA/Vit K (Multi-Day Plus Minerals Tablet) 18 MG IRON-400 MCG-25 MCG TABLET 1 Tablet ORAL DAILY Cholecalciferol (Vitamin D3) (Vitamin D) 2,000 UNIT TABLET 1 Tablet ORAL DAILY Qty = 30 Comments: NOT GIVEN Methotrexate (Methotrexate) 2.5 MG TABLET 4 Tablet ORAL EVERY MONDAY Qty = 30 Instructions: Take every monday Comments: Last Taken:02/18/17 Time:9:39A.M Cranberry Fruit Concentrate (Cran-Max) 500 MG CAPSULE 1 Capsule ORAL DAILY Qty = 30 Instructions: Please take as directed Comments: NOT STARTED THIS ADMISSION Levothyroxine Sodium (Synthroid) 75 MCG TABLET 1 Tablet ORAL DAILY BEFORE BREAKFAST Qty = 60 Comments: Last Taken:03/27/18 Time:6AM Folic Acid (Folic Acid) 1 MG TABLET 1 Tablet ORAL DAILY Comments: Last Taken:03/27/18 Time:8AM Start taking the following new medications: Ciprofloxacin HCl (Ciprofloxacin HCl) 500 MG TABLET 500 Milligram ORAL EVERY 12 HOURS Qty = 10 No Refills Instructions: Please take one tablet every 12 hours and complete the course of the antibiotics. Please take with food. Comments: NOT GIVEN Metronidazole (Flagyl) 500 MG TABLET 500 Milligram ORAL EVERY 8 HOURS Qty = 15 No Refills Instructions: Please take one every 8 hours and complete the course of the antibiotic. Please take with food. Comments: NOT GIVEN Copies To: Alec EATON,Giancarlo Michele Attending MD Review Statement Documenting Attending: Deion Miner MD Other Findings: Agree with the above summary and plan of care upon discharge.
[2018-03-27 14:39] VITALS: BP 110/70
== END 2018-03-27 17:30 | DRG 392 ==
LOC: ERH 12:59 → 2NA 19:01 → ERHI 19:01 → ENRESERV 21:14 → ENTRNSPT 21:42 → EDTRNSPTSTS 21:52 → 2NA 22:06 → CMPTRNSPT 22:22 → 2NA 03-26 07:46 → ENPENDDIS 03-27 15:46 → ENTRNSPT 03-27 17:01 → 2NA 03-27 17:30 → EDTRNSPTSTS 03-27 17:40 → EDTRNSPT 03-27 17:40 → CMPTRNSPT 03-27 17:54
PROVIDERS: Physician Assistant Medical
DX: A09 Infectious gastroenteritis and colitis, unspecified (principal); E03.9 Hypothyroidism, unspecified; M19.90 Unspecified osteoarthritis, unspecified site; M06.9 Rheumatoid arthritis, unspecified; I10 Essential (primary) hypertension; Z90.710 Acquired absence of both cervix and uterus; Z98.890 Other specified postprocedural states; Z86.010 Personal history of colon polyps
CPT/HCPCS: 2NASP; 36592; 74177; 81001; 82436; 83630; 87015; 87040; 87045; 87328; 87329; 87899; 87899-59; 93005; 93010; 96374; J0696; J1650; J3490